=== PATIENT | female | born 1945 | race Caucasian/White ===

== ENCOUNTER → 2018-08-22 13:00 | Outpatient (CLI) | payer MEDICARE, BC, SELFPAY | PROVIDERS: PCP Student in an Organized Health Care Education/Training Program; Visit Provider Student in an Organized Health Care Education/Training Program | DX: M81.0 Age-related osteoporosis without current pathological fracture (principal); Z78.0 Asymptomatic menopausal state; E07.9 Disorder of thyroid, unspecified; Z82.62 Family history of osteoporosis | CPT/HCPCS: 77080 ==

== ENCOUNTER 2018-11-22 14:30 | Outpatient (RCR) | payer MEDICARE, BC, SELFPAY ==
--- NOTE | 2018-09-29 16:00 | PT.OIE ---
Current Diagnoses Other symptoms and signs involving the musculoskeletal system (09/29/18) Dizziness and giddiness (09/29/18) Past Medical History (Last Updated 08/14/18 @ 20:57 by Tawana Blair) Postmenopausal (Chronic) Provider Visit Care Team Role Provider Type Jey Phillip MD Attending Provider Physician Primary Care Provider Specialty: Internal Medicine Address: [address] [place] [address], [id number] Email: Physical Therapy Initial Evaluation PT-OP-A Visit Information Start: 09/29/18 12:54 Freq: Status: Active Protocol: Document 09/29/18 13:45 BS (Rec: 09/29/18 12:59 BS [id number]) Out-Patient Physical Therapy Visit Information Visit Information Visit Type Initial Evaluation Visit Start Time 13:00 Visit Stop Time 13:45 Total Visit Minutes 45 Visit Number 1 Number of FUEL TANK SEALER AND TESTER Visits 0 Evaluation Information Evaluation Date 09/29/18 PT-OP-B Current Condition Start: 09/29/18 12:54 Freq: Status: Active Protocol: Document 09/29/18 13:45 BS (Rec: 09/29/18 13:16 BS [id number]) Current Condition History of Current Condition History of Current Condition Pt complains of unsteadiness on her feet, imbalance, weakness, and back pain. She reports that at times she feels fine, but that at other times her balance just feels off and she feels like she may fall, she describes this as dizziness but denies sensation of spinning or symptoms of vertigo. Pt reports this happens several times a day and that it is often unpredictable with the exception of walking >1 hr. Pt denies a history of falls and states that she is always able to regain a LOB on her own with and without external support. Pt does not use an AD and states that she also has chronic bilateral plantar fasciitis. She was diagnosed with PD last month, but questions diagnosis and not willing to accept that that is whats going on as her only sign is B UE tremors, which have reduced with carbidopa- levodopa medications. Developmental History Developmental History Osteoporosis Parkinson's Disease Thyroid Disorder Prior Functional Status Baseline Function- ADL's Independent Baseline Function- Mobility Independent Baseline Function- Gait Independent without use of AD Baseline Function- Work/School Pt is retired. Baseline Function- Recreation/Hobbies Pt reports being able to walk for >1 hr within the last year without disequillibrium, B LE weakness, back pain. Current Functional Impairments (Reported) Functional Limitations- ADL's Pt reports inability to walk around house when feeling off balance. She is unable cook and has difficulty cleaning, showering, and completing other ADLs that require her to be standing due to disequillibrium and fear of falling. Functional Limitations- Mobility/Gait All gait and functional mobility on feet limited due to decreased balance. Pt reports that she furniture walks when feeling off balance in her home. Functional Limitations- Recreation/ Currently unable to walk for > Hobbies 1 hour due to imbalance. When pt is feeling off-balance she does not walk at all due to fear of falling. Personal Factors Other Personal Factors That May Effect osteoporosis Therapy/Recovery back pain Parkinson's Disease PT-OP-C Subjective Start: 09/29/18 12:54 Freq: Status: Active Protocol: Document 09/29/18 13:45 BS (Rec: 10/01/18 12:50 BS [email or web address]) OP-PT Subjective Patient Comments Patient Comments My balance has gotten worse within the last year and my legs and arms feel weaker. Patient Reported Progress Worse Patient Questionnaires ABC- Activity Specific Balance Confidence Scale ABC Score 40 ABC Functional Impairment 60 to <80% Impaired (Score 21- 40) Dizziness Handicap Inventory DHI Score 36 DHI Functional Impairment 20 to 39% Impaired (Score 20- 39) OP-PT Pain Assessment Pain Assessment Grid Paper Pain Assessment Grid Completed Yes Location Back Pain Location Details Upper and lower back Intensity 2 Scale Used Numeric (1 - 10) Description Chronic Frequency Intermittent Pain Duration intermittent with activity, limits walking Pain Aggravating Factors Activity Exercise Standing Sitting Walking Bending Lifting PT-OP-D Balance Start: 09/29/18 12:54 Freq: Status: Active Protocol: Document 09/29/18 13:45 BS (Rec: 10/01/18 12:50 BS [email or web address]) OP-PT Balance Assessment Sitting Balance Static Sitting Balance Ability Normal Dynamic Sitting Balance Ability Normal Standing Balance Static Standing Balance Ability Normal Dynamic Standing Balance Ability Normal Device Used no AD Balance Tests mCTSIB mCTSIB Position 1 maintained postition 30 seconds without LOB and little sway mCTSIB Position 2 maintained postition 30 seconds without LOB, increased med/lat sway mCTSIB Position 3 maintained position 30 seconds , no LOB, increased ankle strategies mCTSIB Position 4 LOB within 10 seconds, increased med/lat sway Chavez Fall Scale Copyright Permission Scott JM, Scott RM, Linus SJ. Development of a scale to identify the fall- prone patient. Can J Aging 1989;8;366-7. Sharon Chavez (2009). Preventing patient falls. (2nd ed). [place]: [employer]. PT-OP-E Functional Tests Start: 09/29/18 12:54 Freq: Status: Active Protocol: Document 09/29/18 13:45 BS (Rec: 10/01/18 12:50 BS [email or web address]) Functional Tests Dynamic Gait Index (DGI) Score 23 DGI Impairment Rating 1 to <20% Impaired (Score 20- 23) Other 1 Name of Test 30 second sit to stand Score 14 Comment not at increased risk for falls. PT-OP-G Mobility & Gait Start: 09/29/18 12:54 Freq: Status: Active Protocol: Document 09/29/18 13:45 BS (Rec: 10/01/18 12:50 BS [email or web address]) OP Mobility Evaluation Bed Mobility Rolling Independent use of UEs Supine to and from Sit Independent use of UEs Transfers Sit to Stand Independent no use of UEs Car Transfers Pt does not reort difficulty with car transfers and is able to do independently. Floor Transfers Pt reports that she would be able to get up off of the floor without external support in the event of a fall. OP Gait Assessment Gait Gait Assistance Required: Independent Able to Maintain Weight Bearing Status Yes During Gait Assistive Devices Assistive Device None Gait Deviations General Gait Pattern Within Normal Limits Flexed Trunk Comments Gait Comments Pt ambulated in clinic without use of AD and without evidence of imbalance. She does exhibit slighly flexed trunk posture. Pt reports that when she is feeling imbalanced she is unable to walk without grabbing onto nearby furniture or levine. PT-OP-H Neuro Start: 09/29/18 12:54 Freq: Status: Active Protocol: Document 09/29/18 13:45 BS (Rec: 10/01/18 12:50 BS [email or web address]) Coordination Evaluation Upper Extremity Tests Right Finger to Nose Test Normal Performance Left Finger to Nose Test Normal Performance PT-OP-J Posture/Palpation/Skin Start: 09/29/18 12:54 Freq: Status: Active Protocol: Document 09/29/18 13:45 BS (Rec: 10/01/18 12:50 BS [email or web address]) Posture Evaluation Position Standing Evaluation View Anterior Head/C-Spine Posture Forward Head Shoulder Posture (L) Rounded (R) Rounded Comments Posture Comments Pt demo's forward head and rounded shoulders bilaterally, slight increase in trunk flexion. PT-OP-M Strength Start: 09/29/18 12:54 Freq: Status: Active Protocol: Document 09/29/18 13:45 BS (Rec: 10/01/18 12:50 BS [email or web address]) Hip Strength Hip Manual Muscle Testing Right Flexion (L2) 5 Normal Extension (S1) 4 Good Abduction 4 Good External Rotation 4+ Good+ Internal Rotation 4+ Good+ Comments no pain during MMT Left Flexion (L2) 5 Normal Extension (S1) 4 Good Abduction 4 Good External Rotation 4+ Good+ Internal Rotation 4+ Good+ Comments no pain during MMT Knee Strength Knee Manual Muscle Testing Right Flexion (S2) 4 Good Comments no pain during MMT Left Flexion (S2) 4 Good Extension (L3) 4 Good Comments no pain during MMT Ankle/Foot Strength Ankle and Foot Manual Muscle Testing Right Dorsiflexion (L4) 5 Normal Plantarflexion (S1) 5 Normal Comments no pain during MMT Left Dorsiflexion (L4) 5 Normal Plantarflexion (S1) 5 Normal Comments no pain during MMT PT-OP-Q Treatments Start: 10/01/18 12:50 Freq: Status: Active Protocol: Document 09/29/18 13:45 BS (Rec: 10/01/18 12:51 BS [email or web address]) Therapeutic Exercises Standing Exercises 1 Standing Exercise Name Mini Squats Equipment Used at countertop, B UE support Reps/Minutes x10 Comments added to HEP today. PT-OP-T Assessment and Plan Start: 09/29/18 12:54 Freq: Status: Active Protocol: Document 09/29/18 13:45 BS (Rec: 10/01/18 12:50 BS [email or web address]) Physical Therapy Assessment Rehab Potential Rehabilitation Potential Good Evaluation Complexity Number of Personal Factors/Comorbidities 1-2 Number of Body Systems Impaired 1-2 Clinical Presentation at Evaluation Stable Impairments Impairments Activity Tolerance Balance Functional Activities Functional Mobility Gait Pain Strength Other Concerns Age Related Concerns at increased risk for falls when experiencing sensation of disequillibrium Barriers to Rehabilitation Progressive nature of Parkinson's Disease, osteoporosis Goals One Impairment lack of HEP Short Term Goal (STG) Pt will become independent with an initial HEP for bilateral lower extremity strengthening and balance to maximize rehabilitation potentional outside of formal PT sessions. STG Duration 4 weeks Research Lab Assistant Goal (LTG) Pt to demonstrate at least 4+/ 5 strength with bilateral hip extension, abduction, and knee flexion to improve pt ability to complete ADLs without weakness and fatigue. LTG Duration 10 weeks Two Impairment Balance Short Term Goal (STG) Pt will maintain position 4 of modified CTSIB for at least 15 seconds without LOB to promote safety and reduced fall risk in low-lit environments. STG Duration 4 weeks Retirement Goal (LTG) Pt will score at least a 50 on the Activities Specific Balance Confidence Scale, demonstrating subjective improvements in balance confidence with daily and recreational activities. LTG Duration 10 weeks Assessment Summary Assessment Juan is a 73 year old female who presents with complaints of bilateral lower extremity weakness and disequillbrium. She was recently diagnosed with parkinson's disease but is not convinced of this diagnosis. She has osteoporosis, but denies a history of falls. Pt's feeling of imbalance is not constant, but she reports that it occurs daily limiting her ability to perform ADLs and walk for exercise without a LOB and increased fear of falling. Pt benefits from skilled physical therapy intervention for bilateral lower extremity strengthening and dynamic balance challenging activities to promote return to PLOF and to increase safety with mobility. Physical Therapy Plan Frequency and Duration Frequency of Treatment 1-2x/week Duration of Treatment 10 weeks Plan of Care Start Date 09/29/18 Plan of Care End Date 12/08/18 Therapeutic Interventions Therapeutic Interventions Balance Training Coordination Training Home Exercise Program Manual Therapy Neuromuscular Re-education Patient/Caregiver Education Self-Care/Home Management Therapeutic Activities Therapeutic Exercises Vestibular Rehabilitation Modalities Cold Pack/Ice Massage Hot Packs Next Visit Focus/Plan Next Note Type Treatment Note Next Visit Plan Test single limb balance. Begin B LE strengthening and dynamic balance challenging activities. Consider having her walk on treadmill for awhile to asesss impact of fatigue on balance.
--- NOTE | 2018-10-02 15:47 | PT.OTN ---
Current Diagnoses Other symptoms and signs involving the musculoskeletal system (10/02/18) Dizziness and giddiness (10/02/18) Physical Therapy Treatment Note PT-OP-A Visit Information Start: 09/29/18 12:54 Freq: Status: Active Protocol: Document 10/02/18 15:17 BS (Rec: 10/02/18 15:37 BS [email or web address]) Out-Patient Physical Therapy Visit Information Visit Information Visit Type Treatment Note Visit Start Time 14:30 Visit Stop Time 15:17 Total Visit Minutes 47 Visit Number 2 Number of COPPER PLATE LITHOGRAPHER Visits 0 Evaluation Information Evaluation Date 09/29/18 PT-OP-B Current Condition Start: 09/29/18 12:54 Freq: Status: Active Protocol: Document 09/29/18 13:45 BS (Rec: 09/29/18 13:16 BS [id number]) Current Condition History of Current Condition History of Current Condition Pt complains of unsteadiness on her feet, imbalance, weakness, and back pain. She reports that at times she feels fine, but that at other times her balance just feels off and she feels like she may fall, she describes this as dizziness but denies sensation of spinning or symptoms of vertigo. Pt reports this happens several times a day and that it is often unpredictable with the exception of walking >1 hr. Pt denies a history of falls and states that she is always able to regain a LOB on her own with and without external support. Pt does not use an AD and states that she also has chronic bilateral plantar fasciitis. She was diagnosed with PD last month, but questions diagnosis and not willing to accept that that is whats going on as her only sign is B UE tremors, which have reduced with carbidopa- levodopa medications. Developmental History Developmental History Osteoporosis Parkinson's Disease Thyroid Disorder Prior Functional Status Baseline Function- ADL's Independent Baseline Function- Mobility Independent Baseline Function- Gait Independent without use of AD Baseline Function- Work/School Pt is retired. Baseline Function- Recreation/Hobbies Pt reports being able to walk for >1 hr within the last year without disequillibrium, B LE weakness, back pain. Current Functional Impairments (Reported) Functional Limitations- ADL's Pt reports inability to walk around house when feeling off balance. She is unable cook and has difficulty cleaning, showering, and completing other ADLs that require her to be standing due to disequillibrium and fear of falling. Functional Limitations- Mobility/Gait All gait and functional mobility on feet limited due to decreased balance. Pt reports that she furniture walks when feeling off balance in her home. Functional Limitations- Recreation/ Currently unable to walk for > Hobbies 1 hour due to imbalance. When pt is feeling off-balance she does not walk at all due to fear of falling. Personal Factors Other Personal Factors That May Effect osteoporosis Therapy/Recovery back pain Parkinson's Disease PT-OP-C Subjective Start: 09/29/18 12:54 Freq: Status: Active Protocol: Document 10/02/18 15:17 BS (Rec: 10/02/18 15:37 BS [email or web address]) OP-PT Subjective Patient Comments Patient Comments Pt denies any soreness following IE. She continues to report episodic disequillbrium that is worse when she is fatigued. PT-OP-D Balance Start: 09/29/18 12:54 Freq: Status: Active Protocol: Document 10/02/18 15:17 BS (Rec: 10/02/18 15:37 BS [email or web address]) Balance Tests Single Limb Standing Single Limb- Right 20 sec, 27 sec, 25 sec Single Limb- Left 6 sec, 5 sec, 15 sec PT-OP-E Functional Tests Start: 09/29/18 12:54 Freq: Status: Active Protocol: Document 09/29/18 13:45 BS (Rec: 10/01/18 12:50 BS [email or web address]) Functional Tests Dynamic Gait Index (DGI) Score 23 DGI Impairment Rating 1 to <20% Impaired (Score 20- 23) Other 1 Name of Test 30 second sit to stand Score 14 Comment not at increased risk for falls. PT-OP-G Mobility & Gait Start: 09/29/18 12:54 Freq: Status: Active Protocol: Document 09/29/18 13:45 BS (Rec: 10/01/18 12:50 BS [email or web address]) OP Mobility Evaluation Bed Mobility Rolling Independent use of UEs Supine to and from Sit Independent use of UEs Transfers Sit to Stand Independent no use of UEs Car Transfers Pt does not reort difficulty with car transfers and is able to do independently. Floor Transfers Pt reports that she would be able to get up off of the floor without external support in the event of a fall. OP Gait Assessment Gait Gait Assistance Required: Independent Able to Maintain Weight Bearing Status Yes During Gait Assistive Devices Assistive Device None Gait Deviations General Gait Pattern Within Normal Limits Flexed Trunk Comments Gait Comments Pt ambulated in clinic without use of AD and without evidence of imbalance. She does exhibit slighly flexed trunk posture. Pt reports that when she is feeling imbalanced she is unable to walk without grabbing onto nearby furniture or levine. PT-OP-H Neuro Start: 09/29/18 12:54 Freq: Status: Active Protocol: Document 09/29/18 13:45 BS (Rec: 10/01/18 12:50 BS [email or web address]) Coordination Evaluation Upper Extremity Tests Right Finger to Nose Test Normal Performance Left Finger to Nose Test Normal Performance PT-OP-J Posture/Palpation/Skin Start: 09/29/18 12:54 Freq: Status: Active Protocol: Document 09/29/18 13:45 BS (Rec: 10/01/18 12:50 BS [email or web address]) Posture Evaluation Position Standing Evaluation View Anterior Head/C-Spine Posture Forward Head Shoulder Posture (L) Rounded (R) Rounded Comments Posture Comments Pt demo's forward head and rounded shoulders bilaterally, slight increase in trunk flexion. PT-OP-M Strength Start: 09/29/18 12:54 Freq: Status: Active Protocol: Document 09/29/18 13:45 BS (Rec: 10/01/18 12:50 BS [email or web address]) Hip Strength Hip Manual Muscle Testing Right Flexion (L2) 5 Normal Extension (S1) 4 Good Abduction 4 Good External Rotation 4+ Good+ Internal Rotation 4+ Good+ Comments no pain during MMT Left Flexion (L2) 5 Normal Extension (S1) 4 Good Abduction 4 Good External Rotation 4+ Good+ Internal Rotation 4+ Good+ Comments no pain during MMT Knee Strength Knee Manual Muscle Testing Right Flexion (S2) 4 Good Comments no pain during MMT Left Flexion (S2) 4 Good Extension (L3) 4 Good Comments no pain during MMT Ankle/Foot Strength Ankle and Foot Manual Muscle Testing Right Dorsiflexion (L4) 5 Normal Plantarflexion (S1) 5 Normal Comments no pain during MMT Left Dorsiflexion (L4) 5 Normal Plantarflexion (S1) 5 Normal Comments no pain during MMT PT-OP-Q Treatments Start: 10/01/18 12:50 Freq: Status: Active Protocol: Document 10/02/18 15:17 BS (Rec: 10/02/18 15:37 BS [email or web address]) Cardio Equipment Treadmill Duration (Minutes) 8 Speed 3.0 Incline 0 Other .40 miles Gym Equipment Shuttle Balance 1 Details Ant/Post and Lateral Comments Level: Red. WBOS and NBOS with ant/post, occasional use of B UEs on bars to steady. Lateral more challenging with UE steadying on bars ~5-10 seconds. Therapeutic Exercises Standing Exercises 2 Standing Exercise Name Hip abduction Side bilateral Resistance 4# ankle weights Reps/Minutes x15 each Comments VCs to avoid hip ER 1 Standing Exercise Name Mini Squats Equipment Used // bars B UE support Reps/Minutes x15 Comments able to avoid knees over toes without VCs Neuro Re-Education Treatment Balance Activities 4 Details Single Limb Balance Equipment // bars no UE support Reps/Duration 3x to failure each leg Comments RLE balance<LLE 3 Details Tilt Board ant/post/lateral Equipment // bars, no UE supoprt Reps/Duration x1' each Comments trial today. Pt progressed to shuttle balance. 2 Details WBOS, NBOS Surface bosu balance discs Reps/Duration //bars no UE support Comments Arms across chest. EO and EC with WBOS and NBOS. Increased sway with EC, but able to maintain balance for at least 30 seconds without LOB. 1 Details [place] Walking and Sidestepping Surface firm and with foam balance discs Equipment // bars, no UE support Comments reciprocal stepping, 1 foot each space with forward walking hurdles. PT-OP-T Assessment and Plan Start: 09/29/18 12:54 Freq: Status: Active Protocol: Document 10/02/18 15:17 BS (Rec: 10/02/18 15:37 BS [email or web address]) Physical Therapy Assessment Assessment Summary Assessment Pt tolerated session well without a LOB during dynamic balance challenging activities following treadmill. Assessed single limb balance with RLE greater than LLE. She continues to report episodes of disequillibrium that increase when she is fatigued. Will continue to work on balance and B LE strengthening . Physical Therapy Plan Next Visit Focus/Plan Next Note Type Treatment Note Next Visit Plan Progress B LE strengthening with theraband and add to HEP. Dynamic balance challenging activities following strengthening exercises in order to challenge balance with fatigue.
--- NOTE | 2018-10-04 15:50 | PT.OTN ---
Current Diagnoses Other symptoms and signs involving the musculoskeletal system (10/04/18) Dizziness and giddiness (10/04/18) Physical Therapy Treatment Note PT-OP-A Visit Information Start: 09/29/18 12:54 Freq: Status: Active Protocol: Document 10/04/18 15:21 BS (Rec: 10/04/18 15:30 BS [email or web address]) Out-Patient Physical Therapy Visit Information Visit Information Visit Type Treatment Note Visit Start Time 14:35 Visit Stop Time 15:16 Total Visit Minutes 41 Visit Number 3 Number of FASHION DIRECTOR Visits 0 Evaluation Information Evaluation Date 09/29/18 PT-OP-B Current Condition Start: 09/29/18 12:54 Freq: Status: Active Protocol: Document 09/29/18 13:45 BS (Rec: 09/29/18 13:16 BS [id number]) Current Condition History of Current Condition History of Current Condition Pt complains of unsteadiness on her feet, imbalance, weakness, and back pain. She reports that at times she feels fine, but that at other times her balance just feels off and she feels like she may fall, she describes this as dizziness but denies sensation of spinning or symptoms of vertigo. Pt reports this happens several times a day and that it is often unpredictable with the exception of walking >1 hr. Pt denies a history of falls and states that she is always able to regain a LOB on her own with and without external support. Pt does not use an AD and states that she also has chronic bilateral plantar fasciitis. She was diagnosed with PD last month, but questions diagnosis and not willing to accept that that is whats going on as her only sign is B UE tremors, which have reduced with carbidopa- levodopa medications. Developmental History Developmental History Osteoporosis Parkinson's Disease Thyroid Disorder Prior Functional Status Baseline Function- ADL's Independent Baseline Function- Mobility Independent Baseline Function- Gait Independent without use of AD Baseline Function- Work/School Pt is retired. Baseline Function- Recreation/Hobbies Pt reports being able to walk for >1 hr within the last year without disequillibrium, B LE weakness, back pain. Current Functional Impairments (Reported) Functional Limitations- ADL's Pt reports inability to walk around house when feeling off balance. She is unable cook and has difficulty cleaning, showering, and completing other ADLs that require her to be standing due to disequillibrium and fear of falling. Functional Limitations- Mobility/Gait All gait and functional mobility on feet limited due to decreased balance. Pt reports that she furniture walks when feeling off balance in her home. Functional Limitations- Recreation/ Currently unable to walk for > Hobbies 1 hour due to imbalance. When pt is feeling off-balance she does not walk at all due to fear of falling. Personal Factors Other Personal Factors That May Effect osteoporosis Therapy/Recovery back pain Parkinson's Disease PT-OP-C Subjective Start: 09/29/18 12:54 Freq: Status: Active Protocol: Document 10/04/18 15:21 BS (Rec: 10/04/18 15:30 BS [email or web address]) OP-PT Subjective Patient Comments Patient Comments Pt continues to report that her dizziness/disequillbrium is epsidodic and worse with fatigue. She denies cardiac history. PT-OP-D Balance Start: 09/29/18 12:54 Freq: Status: Active Protocol: Document 10/02/18 15:17 BS (Rec: 10/02/18 15:37 BS [email or web address]) Balance Tests Single Limb Standing Single Limb- Right 20 sec, 27 sec, 25 sec Single Limb- Left 6 sec, 5 sec, 15 sec PT-OP-E Functional Tests Start: 09/29/18 12:54 Freq: Status: Active Protocol: Document 09/29/18 13:45 BS (Rec: 10/01/18 12:50 BS [email or web address]) Functional Tests Dynamic Gait Index (DGI) Score 23 DGI Impairment Rating 1 to <20% Impaired (Score 20- 23) Other 1 Name of Test 30 second sit to stand Score 14 Comment not at increased risk for falls. PT-OP-G Mobility & Gait Start: 09/29/18 12:54 Freq: Status: Active Protocol: Document 09/29/18 13:45 BS (Rec: 10/01/18 12:50 BS [email or web address]) OP Mobility Evaluation Bed Mobility Rolling Independent use of UEs Supine to and from Sit Independent use of UEs Transfers Sit to Stand Independent no use of UEs Car Transfers Pt does not reort difficulty with car transfers and is able to do independently. Floor Transfers Pt reports that she would be able to get up off of the floor without external support in the event of a fall. OP Gait Assessment Gait Gait Assistance Required: Independent Able to Maintain Weight Bearing Status Yes During Gait Assistive Devices Assistive Device None Gait Deviations General Gait Pattern Within Normal Limits Flexed Trunk Comments Gait Comments Pt ambulated in clinic without use of AD and without evidence of imbalance. She does exhibit slighly flexed trunk posture. Pt reports that when she is feeling imbalanced she is unable to walk without grabbing onto nearby furniture or levine. PT-OP-H Neuro Start: 09/29/18 12:54 Freq: Status: Active Protocol: Document 09/29/18 13:45 BS (Rec: 10/01/18 12:50 BS [email or web address]) Coordination Evaluation Upper Extremity Tests Right Finger to Nose Test Normal Performance Left Finger to Nose Test Normal Performance PT-OP-J Posture/Palpation/Skin Start: 09/29/18 12:54 Freq: Status: Active Protocol: Document 09/29/18 13:45 BS (Rec: 10/01/18 12:50 BS [email or web address]) Posture Evaluation Position Standing Evaluation View Anterior Head/C-Spine Posture Forward Head Shoulder Posture (L) Rounded (R) Rounded Comments Posture Comments Pt demo's forward head and rounded shoulders bilaterally, slight increase in trunk flexion. PT-OP-M Strength Start: 09/29/18 12:54 Freq: Status: Active Protocol: Document 09/29/18 13:45 BS (Rec: 10/01/18 12:50 BS [email or web address]) Hip Strength Hip Manual Muscle Testing Right Flexion (L2) 5 Normal Extension (S1) 4 Good Abduction 4 Good External Rotation 4+ Good+ Internal Rotation 4+ Good+ Comments no pain during MMT Left Flexion (L2) 5 Normal Extension (S1) 4 Good Abduction 4 Good External Rotation 4+ Good+ Internal Rotation 4+ Good+ Comments no pain during MMT Knee Strength Knee Manual Muscle Testing Right Flexion (S2) 4 Good Comments no pain during MMT Left Flexion (S2) 4 Good Extension (L3) 4 Good Comments no pain during MMT Ankle/Foot Strength Ankle and Foot Manual Muscle Testing Right Dorsiflexion (L4) 5 Normal Plantarflexion (S1) 5 Normal Comments no pain during MMT Left Dorsiflexion (L4) 5 Normal Plantarflexion (S1) 5 Normal Comments no pain during MMT PT-OP-Q Treatments Start: 10/01/18 12:50 Freq: Status: Active Protocol: Document 10/04/18 15:21 BS (Rec: 10/04/18 15:30 BS [email or web address]) Cardio Equipment Treadmill Duration (Minutes) 10 Speed 3.0 Incline 0 Other .50 miles Therapeutic Exercises Supine Exercises 3 Supine Exercise Name Ankle DF Equipment Used #2 band Reps/Minutes x20 2 Supine Exercise Name BKFO Side bilateral Reps/Minutes x10 each 1 Supine Exercise Name Supine Clamshells Side bilateral Equipment Used #2 band Comments 2x10 Standing Exercises 4 Standing Exercise Name Calf Raises Resistance // bars, B UE support Reps/Minutes 2x10 3 Standing Exercise Name Hip extension Side bilateral Equipment Used // bars, B UE support Reps/Minutes 2x10 each Comments VCs to avoid lordosis 2 Standing Exercise Name Hip abduction Side bilateral Resistance 4# ankle weights Reps/Minutes 2x10 Comments VCs to avoid hip ER 1 Standing Exercise Name Mini Squats Equipment Used // bars B UE support Reps/Minutes 2x12 Comments good technique PT-OP-T Assessment and Plan Start: 09/29/18 12:54 Freq: Status: Active Protocol: Document 10/04/18 15:21 BS (Rec: 10/04/18 15:30 BS [email or web address]) Physical Therapy Assessment Assessment Summary Assessment Pt did well with B LE strengthening, focusing on endurance with sets and reps as pt notices more disequillbrium with fatigue. Her R foot tends to drag a bit after 5' of treadmill walking . Added hip abd, ext, clams, and calf raises to HEP today. Physical Therapy Plan Next Visit Focus/Plan Next Note Type Treatment Note Next Visit Plan Progress B LE strengthening with focus on endurance, decrease B UE support as able for balance challenege.
--- NOTE | 2018-10-09 15:46 | PT.OTN ---
Current Diagnoses Other symptoms and signs involving the musculoskeletal system (10/09/18) Dizziness and giddiness (10/09/18) Physical Therapy Treatment Note PT-OP-A Visit Information Start: 09/29/18 12:54 Freq: Status: Active Protocol: Document 10/09/18 14:45 BS (Rec: 10/09/18 14:47 BS [email or web address]) Out-Patient Physical Therapy Visit Information Visit Information Visit Type Treatment Note Visit Start Time 14:35 Visit Stop Time 15:20 Total Visit Minutes 45 Visit Number 4 Number of INTERNET ASSESSOR Visits 0 Evaluation Information Evaluation Date 09/29/18 PT-OP-B Current Condition Start: 09/29/18 12:54 Freq: Status: Active Protocol: Document 09/29/18 13:45 BS (Rec: 09/29/18 13:16 BS [id number]) Current Condition History of Current Condition History of Current Condition Pt complains of unsteadiness on her feet, imbalance, weakness, and back pain. She reports that at times she feels fine, but that at other times her balance just feels off and she feels like she may fall, she describes this as dizziness but denies sensation of spinning or symptoms of vertigo. Pt reports this happens several times a day and that it is often unpredictable with the exception of walking >1 hr. Pt denies a history of falls and states that she is always able to regain a LOB on her own with and without external support. Pt does not use an AD and states that she also has chronic bilateral plantar fasciitis. She was diagnosed with PD last month, but questions diagnosis and not willing to accept that that is whats going on as her only sign is B UE tremors, which have reduced with carbidopa- levodopa medications. Developmental History Developmental History Osteoporosis Parkinson's Disease Thyroid Disorder Prior Functional Status Baseline Function- ADL's Independent Baseline Function- Mobility Independent Baseline Function- Gait Independent without use of AD Baseline Function- Work/School Pt is retired. Baseline Function- Recreation/Hobbies Pt reports being able to walk for >1 hr within the last year without disequillibrium, B LE weakness, back pain. Current Functional Impairments (Reported) Functional Limitations- ADL's Pt reports inability to walk around house when feeling off balance. She is unable cook and has difficulty cleaning, showering, and completing other ADLs that require her to be standing due to disequillibrium and fear of falling. Functional Limitations- Mobility/Gait All gait and functional mobility on feet limited due to decreased balance. Pt reports that she furniture walks when feeling off balance in her home. Functional Limitations- Recreation/ Currently unable to walk for > Hobbies 1 hour due to imbalance. When pt is feeling off-balance she does not walk at all due to fear of falling. Personal Factors Other Personal Factors That May Effect osteoporosis Therapy/Recovery back pain Parkinson's Disease PT-OP-C Subjective Start: 09/29/18 12:54 Freq: Status: Active Protocol: Document 10/09/18 14:45 BS (Rec: 10/09/18 14:47 BS [id number]) OP-PT Subjective Patient Comments Patient Comments Pt states she has noticed slight improvements in frequency of disequillbrium, continues experience it most when fatigued. Had B12 injection this morning and tends to feel better a few days following. PT-OP-D Balance Start: 09/29/18 12:54 Freq: Status: Active Protocol: Document 10/02/18 15:17 BS (Rec: 10/02/18 15:37 BS [email or web address]) Balance Tests Single Limb Standing Single Limb- Right 20 sec, 27 sec, 25 sec Single Limb- Left 6 sec, 5 sec, 15 sec PT-OP-E Functional Tests Start: 09/29/18 12:54 Freq: Status: Active Protocol: Document 09/29/18 13:45 BS (Rec: 10/01/18 12:50 BS [email or web address]) Functional Tests Dynamic Gait Index (DGI) Score 23 DGI Impairment Rating 1 to <20% Impaired (Score 20- 23) Other 1 Name of Test 30 second sit to stand Score 14 Comment not at increased risk for falls. PT-OP-G Mobility & Gait Start: 09/29/18 12:54 Freq: Status: Active Protocol: Document 09/29/18 13:45 BS (Rec: 10/01/18 12:50 BS [email or web address]) OP Mobility Evaluation Bed Mobility Rolling Independent use of UEs Supine to and from Sit Independent use of UEs Transfers Sit to Stand Independent no use of UEs Car Transfers Pt does not reort difficulty with car transfers and is able to do independently. Floor Transfers Pt reports that she would be able to get up off of the floor without external support in the event of a fall. OP Gait Assessment Gait Gait Assistance Required: Independent Able to Maintain Weight Bearing Status Yes During Gait Assistive Devices Assistive Device None Gait Deviations General Gait Pattern Within Normal Limits Flexed Trunk Comments Gait Comments Pt ambulated in clinic without use of AD and without evidence of imbalance. She does exhibit slighly flexed trunk posture. Pt reports that when she is feeling imbalanced she is unable to walk without grabbing onto nearby furniture or levine. PT-OP-H Neuro Start: 09/29/18 12:54 Freq: Status: Active Protocol: Document 09/29/18 13:45 BS (Rec: 10/01/18 12:50 BS [email or web address]) Coordination Evaluation Upper Extremity Tests Right Finger to Nose Test Normal Performance Left Finger to Nose Test Normal Performance PT-OP-J Posture/Palpation/Skin Start: 09/29/18 12:54 Freq: Status: Active Protocol: Document 09/29/18 13:45 BS (Rec: 10/01/18 12:50 BS [email or web address]) Posture Evaluation Position Standing Evaluation View Anterior Head/C-Spine Posture Forward Head Shoulder Posture (L) Rounded (R) Rounded Comments Posture Comments Pt demo's forward head and rounded shoulders bilaterally, slight increase in trunk flexion. PT-OP-M Strength Start: 09/29/18 12:54 Freq: Status: Active Protocol: Document 09/29/18 13:45 BS (Rec: 10/01/18 12:50 BS [email or web address]) Hip Strength Hip Manual Muscle Testing Right Flexion (L2) 5 Normal Extension (S1) 4 Good Abduction 4 Good External Rotation 4+ Good+ Internal Rotation 4+ Good+ Comments no pain during MMT Left Flexion (L2) 5 Normal Extension (S1) 4 Good Abduction 4 Good External Rotation 4+ Good+ Internal Rotation 4+ Good+ Comments no pain during MMT Knee Strength Knee Manual Muscle Testing Right Flexion (S2) 4 Good Comments no pain during MMT Left Flexion (S2) 4 Good Extension (L3) 4 Good Comments no pain during MMT Ankle/Foot Strength Ankle and Foot Manual Muscle Testing Right Dorsiflexion (L4) 5 Normal Plantarflexion (S1) 5 Normal Comments no pain during MMT Left Dorsiflexion (L4) 5 Normal Plantarflexion (S1) 5 Normal Comments no pain during MMT PT-OP-Q Treatments Start: 10/01/18 12:50 Freq: Status: Active Protocol: Document 10/09/18 15:23 BS (Rec: 10/09/18 15:38 BS [email or web address]) Cardio Equipment Treadmill Duration (Minutes) 10 Speed 3.0 Incline 0 Other .50 miles Therapeutic Exercises Supine Exercises 4 Supine Exercise Name Bridges Reps/Minutes x15 each Comments bilateral and unilateral 3 Supine Exercise Name Ankle DF Side bilateral Equipment Used #3 band Reps/Minutes x20 2 Supine Exercise Name BKFO Side bilateral Reps/Minutes x10 each 1 Supine Exercise Name Supine Clamshells Side bilateral Equipment Used #2 band Comments 2x10 Standing Exercises 6 Standing Exercise Name Sidestepping Resistance yellow loop band Equipment Used B UE support // bars Comments 1 lap in bars 4 Standing Exercise Name Calf Raises Resistance // bars, B UE support Equipment Used 4# ankle wt Reps/Minutes 2x10 3 Standing Exercise Name Hip extension Side bilateral Equipment Used // bars, B UE support,4# wts Reps/Minutes 2x10 each, Comments VCs to avoid lordosis 2 Standing Exercise Name Hip abduction Side bilateral Resistance 4# ankle weights Reps/Minutes 2x15 Comments VCs to avoid hip ER 1 Standing Exercise Name Mini Squats Equipment Used // bars B UE support Reps/Minutes 2x15 Comments good technique PT-OP-T Assessment and Plan Start: 09/29/18 12:54 Freq: Status: Active Protocol: Document 10/09/18 15:23 BS (Rec: 10/09/18 15:38 BS [email or web address]) Physical Therapy Assessment Assessment Summary Assessment BP taken prior to warmup on treadmill, standing RUE: 100/ 60 and post .5mile treadmill: 120/60. Pt has noticed a reduction in frequency of disequillbrium and she had B12 injection this morning. Will continue to monitor symptoms and further evaluate. Physical Therapy Plan Next Visit Focus/Plan Next Note Type Treatment Note Next Visit Plan Progression of B Le strengthening with reduction in UE support for balance challenge. Assess tone and rigidity next session.
--- NOTE | 2018-10-16 15:35 | PT.OTN ---
Current Diagnoses Other symptoms and signs involving the musculoskeletal system (10/16/18) Dizziness and giddiness (10/16/18) Physical Therapy Treatment Note PT-OP-A Visit Information Start: 09/29/18 12:54 Freq: Status: Active Protocol: Document 10/16/18 14:30 AMB (Rec: 10/16/18 15:35 AMB [email or web address]) Out-Patient Physical Therapy Visit Information Visit Information Visit Type Treatment Note Visit Start Time 14:35 Visit Stop Time 15:20 Total Visit Minutes 45 Visit Number 5 Number of CHASER HELPER Visits 0 PT-OP-B Current Condition Start: 09/29/18 12:54 Freq: Status: Active Protocol: Document 09/29/18 13:45 BS (Rec: 09/29/18 13:16 BS [id number]) Current Condition History of Current Condition History of Current Condition Pt complains of unsteadiness on her feet, imbalance, weakness, and back pain. She reports that at times she feels fine, but that at other times her balance just feels off and she feels like she may fall, she describes this as dizziness but denies sensation of spinning or symptoms of vertigo. Pt reports this happens several times a day and that it is often unpredictable with the exception of walking >1 hr. Pt denies a history of falls and states that she is always able to regain a LOB on her own with and without external support. Pt does not use an AD and states that she also has chronic bilateral plantar fasciitis. She was diagnosed with PD last month, but questions diagnosis and not willing to accept that that is whats going on as her only sign is B UE tremors, which have reduced with carbidopa- levodopa medications. Developmental History Developmental History Osteoporosis Parkinson's Disease Thyroid Disorder Prior Functional Status Baseline Function- ADL's Independent Baseline Function- Mobility Independent Baseline Function- Gait Independent without use of AD Baseline Function- Work/School Pt is retired. Baseline Function- Recreation/Hobbies Pt reports being able to walk for >1 hr within the last year without disequillibrium, B LE weakness, back pain. Current Functional Impairments (Reported) Functional Limitations- ADL's Pt reports inability to walk around house when feeling off balance. She is unable cook and has difficulty cleaning, showering, and completing other ADLs that require her to be standing due to disequillibrium and fear of falling. Functional Limitations- Mobility/Gait All gait and functional mobility on feet limited due to decreased balance. Pt reports that she furniture walks when feeling off balance in her home. Functional Limitations- Recreation/ Currently unable to walk for > Hobbies 1 hour due to imbalance. When pt is feeling off-balance she does not walk at all due to fear of falling. Personal Factors Other Personal Factors That May Effect osteoporosis Therapy/Recovery back pain Parkinson's Disease PT-OP-C Subjective Start: 09/29/18 12:54 Freq: Status: Active Protocol: Document 10/16/18 14:30 AMB (Rec: 10/16/18 15:35 AMB [email or web address]) OP-PT Subjective Patient Comments Patient Comments The patient states that she had 3 days in a row of very low energy where she felt a lot more disequilibrium. PT-OP-D Balance Start: 09/29/18 12:54 Freq: Status: Active Protocol: Document 10/02/18 15:17 BS (Rec: 10/02/18 15:37 BS [email or web address]) Balance Tests Single Limb Standing Single Limb- Right 20 sec, 27 sec, 25 sec Single Limb- Left 6 sec, 5 sec, 15 sec PT-OP-E Functional Tests Start: 09/29/18 12:54 Freq: Status: Active Protocol: Document 09/29/18 13:45 BS (Rec: 10/01/18 12:50 BS [email or web address]) Functional Tests Dynamic Gait Index (DGI) Score 23 DGI Impairment Rating 1 to <20% Impaired (Score 20- 23) Other 1 Name of Test 30 second sit to stand Score 14 Comment not at increased risk for falls. PT-OP-G Mobility & Gait Start: 09/29/18 12:54 Freq: Status: Active Protocol: Document 09/29/18 13:45 BS (Rec: 10/01/18 12:50 BS [email or web address]) OP Mobility Evaluation Bed Mobility Rolling Independent use of UEs Supine to and from Sit Independent use of UEs Transfers Sit to Stand Independent no use of UEs Car Transfers Pt does not reort difficulty with car transfers and is able to do independently. Floor Transfers Pt reports that she would be able to get up off of the floor without external support in the event of a fall. OP Gait Assessment Gait Gait Assistance Required: Independent Able to Maintain Weight Bearing Status Yes During Gait Assistive Devices Assistive Device None Gait Deviations General Gait Pattern Within Normal Limits Flexed Trunk Comments Gait Comments Pt ambulated in clinic without use of AD and without evidence of imbalance. She does exhibit slighly flexed trunk posture. Pt reports that when she is feeling imbalanced she is unable to walk without grabbing onto nearby furniture or levine. PT-OP-H Neuro Start: 09/29/18 12:54 Freq: Status: Active Protocol: Document 09/29/18 13:45 BS (Rec: 10/01/18 12:50 BS [email or web address]) Coordination Evaluation Upper Extremity Tests Right Finger to Nose Test Normal Performance Left Finger to Nose Test Normal Performance PT-OP-J Posture/Palpation/Skin Start: 09/29/18 12:54 Freq: Status: Active Protocol: Document 09/29/18 13:45 BS (Rec: 10/01/18 12:50 BS [email or web address]) Posture Evaluation Position Standing Evaluation View Anterior Head/C-Spine Posture Forward Head Shoulder Posture (L) Rounded (R) Rounded Comments Posture Comments Pt demo's forward head and rounded shoulders bilaterally, slight increase in trunk flexion. PT-OP-M Strength Start: 09/29/18 12:54 Freq: Status: Active Protocol: Document 09/29/18 13:45 BS (Rec: 10/01/18 12:50 BS [email or web address]) Hip Strength Hip Manual Muscle Testing Right Flexion (L2) 5 Normal Extension (S1) 4 Good Abduction 4 Good External Rotation 4+ Good+ Internal Rotation 4+ Good+ Comments no pain during MMT Left Flexion (L2) 5 Normal Extension (S1) 4 Good Abduction 4 Good External Rotation 4+ Good+ Internal Rotation 4+ Good+ Comments no pain during MMT Knee Strength Knee Manual Muscle Testing Right Flexion (S2) 4 Good Comments no pain during MMT Left Flexion (S2) 4 Good Extension (L3) 4 Good Comments no pain during MMT Ankle/Foot Strength Ankle and Foot Manual Muscle Testing Right Dorsiflexion (L4) 5 Normal Plantarflexion (S1) 5 Normal Comments no pain during MMT Left Dorsiflexion (L4) 5 Normal Plantarflexion (S1) 5 Normal Comments no pain during MMT PT-OP-Q Treatments Start: 10/01/18 12:50 Freq: Status: Active Protocol: Document 10/16/18 14:30 AMB (Rec: 10/16/18 15:35 AMB [email or web address]) Cardio Equipment Treadmill Duration (Minutes) 10 Speed 3.0 Incline 0 Other .50 miles Therapeutic Exercises Supine Exercises 4 Supine Exercise Name Bridges Reps/Minutes x15 each Comments bilateral and unilateral 1 Supine Exercise Name Supine Clamshells Side bilateral Equipment Used #2 band Comments 2x10 Sidelying Exercises 1 Sidelying Exercise Name hip abduction Reps/Minutes 2x10 Neuro Re-Education Treatment Balance Activities 7 Details HT on foam Comments EO 6 Details walking with HT Comments 2 min- horizontal only 5 Details foam balance Comments harrison EO/ EC Vestibular Rehabilitation X1 Viewing Comments on harrison foam PT-OP-T Assessment and Plan Start: 09/29/18 12:54 Freq: Status: Active Protocol: Document 10/16/18 14:30 AMB (Rec: 10/16/18 15:35 AMB [email or web address]) Physical Therapy Assessment Assessment Summary Assessment Pt with slight dizziness with head turns, otherwise no reproduction of disequilibrium with exercise. Physical Therapy Plan Next Visit Focus/Plan Next Note Type Treatment Note Next Visit Plan Reassess role of head turns in dizziness.
--- NOTE | 2018-11-22 15:13 | PT.OTN ---
Current Diagnoses Other symptoms and signs involving the musculoskeletal system (11/22/18) Dizziness and giddiness (11/22/18) Physical Therapy Treatment Note PT-OP-A Visit Information Start: 09/29/18 12:54 Freq: Status: Active Protocol: Document 11/22/18 14:30 DCW (Rec: 11/22/18 15:13 DCW [id number]) Out-Patient Physical Therapy Visit Information Visit Information Visit Type Treatment Note Visit Start Time 14:30 Visit Stop Time 15:15 Total Visit Minutes 45 Visit Number 6 Number of SPEECH ASSISTANT Visits 0 Evaluation Information Evaluation Date 09/29/18 PT-OP-B Current Condition Start: 09/29/18 12:54 Freq: Status: Active Protocol: Document 09/29/18 13:45 BS (Rec: 09/29/18 13:16 BS [id number]) Current Condition History of Current Condition History of Current Condition Pt complains of unsteadiness on her feet, imbalance, weakness, and back pain. She reports that at times she feels fine, but that at other times her balance just feels off and she feels like she may fall, she describes this as dizziness but denies sensation of spinning or symptoms of vertigo. Pt reports this happens several times a day and that it is often unpredictable with the exception of walking >1 hr. Pt denies a history of falls and states that she is always able to regain a LOB on her own with and without external support. Pt does not use an AD and states that she also has chronic bilateral plantar fasciitis. She was diagnosed with PD last month, but questions diagnosis and not willing to accept that that is whats going on as her only sign is B UE tremors, which have reduced with carbidopa- levodopa medications. Developmental History Developmental History Osteoporosis Parkinson's Disease Thyroid Disorder Prior Functional Status Baseline Function- ADL's Independent Baseline Function- Mobility Independent Baseline Function- Gait Independent without use of AD Baseline Function- Work/School Pt is retired. Baseline Function- Recreation/Hobbies Pt reports being able to walk for >1 hr within the last year without disequillibrium, B LE weakness, back pain. Current Functional Impairments (Reported) Functional Limitations- ADL's Pt reports inability to walk around house when feeling off balance. She is unable cook and has difficulty cleaning, showering, and completing other ADLs that require her to be standing due to disequillibrium and fear of falling. Functional Limitations- Mobility/Gait All gait and functional mobility on feet limited due to decreased balance. Pt reports that she furniture walks when feeling off balance in her home. Functional Limitations- Recreation/ Currently unable to walk for > Hobbies 1 hour due to imbalance. When pt is feeling off-balance she does not walk at all due to fear of falling. Personal Factors Other Personal Factors That May Effect osteoporosis Therapy/Recovery back pain Parkinson's Disease PT-OP-C Subjective Start: 09/29/18 12:54 Freq: Status: Active Protocol: Document 11/22/18 14:30 DCW (Rec: 11/22/18 15:13 DCW [id number]) OP-PT Subjective Patient Comments Patient Comments I've been away for a month, so I kind of feel like I'm starting over. Pt does note that her disequillibrium has been better recently. PT-OP-D Balance Start: 09/29/18 12:54 Freq: Status: Active Protocol: Document 10/02/18 15:17 BS (Rec: 10/02/18 15:37 BS [email or web address]) Balance Tests Single Limb Standing Single Limb- Right 20 sec, 27 sec, 25 sec Single Limb- Left 6 sec, 5 sec, 15 sec PT-OP-E Functional Tests Start: 09/29/18 12:54 Freq: Status: Active Protocol: Document 09/29/18 13:45 BS (Rec: 10/01/18 12:50 BS [email or web address]) Functional Tests Dynamic Gait Index (DGI) Score 23 DGI Impairment Rating 1 to <20% Impaired (Score 20- 23) Other 1 Name of Test 30 second sit to stand Score 14 Comment not at increased risk for falls. PT-OP-G Mobility & Gait Start: 09/29/18 12:54 Freq: Status: Active Protocol: Document 09/29/18 13:45 BS (Rec: 10/01/18 12:50 BS [email or web address]) OP Mobility Evaluation Bed Mobility Rolling Independent use of UEs Supine to and from Sit Independent use of UEs Transfers Sit to Stand Independent no use of UEs Car Transfers Pt does not reort difficulty with car transfers and is able to do independently. Floor Transfers Pt reports that she would be able to get up off of the floor without external support in the event of a fall. OP Gait Assessment Gait Gait Assistance Required: Independent Able to Maintain Weight Bearing Status Yes During Gait Assistive Devices Assistive Device None Gait Deviations General Gait Pattern Within Normal Limits Flexed Trunk Comments Gait Comments Pt ambulated in clinic without use of AD and without evidence of imbalance. She does exhibit slighly flexed trunk posture. Pt reports that when she is feeling imbalanced she is unable to walk without grabbing onto nearby furniture or levine. PT-OP-H Neuro Start: 09/29/18 12:54 Freq: Status: Active Protocol: Document 09/29/18 13:45 BS (Rec: 10/01/18 12:50 BS [email or web address]) Coordination Evaluation Upper Extremity Tests Right Finger to Nose Test Normal Performance Left Finger to Nose Test Normal Performance PT-OP-J Posture/Palpation/Skin Start: 09/29/18 12:54 Freq: Status: Active Protocol: Document 09/29/18 13:45 BS (Rec: 10/01/18 12:50 BS [email or web address]) Posture Evaluation Position Standing Evaluation View Anterior Head/C-Spine Posture Forward Head Shoulder Posture (L) Rounded (R) Rounded Comments Posture Comments Pt demo's forward head and rounded shoulders bilaterally, slight increase in trunk flexion. PT-OP-M Strength Start: 09/29/18 12:54 Freq: Status: Active Protocol: Document 09/29/18 13:45 BS (Rec: 10/01/18 12:50 BS [email or web address]) Hip Strength Hip Manual Muscle Testing Right Flexion (L2) 5 Normal Extension (S1) 4 Good Abduction 4 Good External Rotation 4+ Good+ Internal Rotation 4+ Good+ Comments no pain during MMT Left Flexion (L2) 5 Normal Extension (S1) 4 Good Abduction 4 Good External Rotation 4+ Good+ Internal Rotation 4+ Good+ Comments no pain during MMT Knee Strength Knee Manual Muscle Testing Right Flexion (S2) 4 Good Comments no pain during MMT Left Flexion (S2) 4 Good Extension (L3) 4 Good Comments no pain during MMT Ankle/Foot Strength Ankle and Foot Manual Muscle Testing Right Dorsiflexion (L4) 5 Normal Plantarflexion (S1) 5 Normal Comments no pain during MMT Left Dorsiflexion (L4) 5 Normal Plantarflexion (S1) 5 Normal Comments no pain during MMT PT-OP-Q Treatments Start: 10/01/18 12:50 Freq: Status: Active Protocol: Document 11/22/18 14:30 DCW (Rec: 11/22/18 15:13 DCW [id number]) Cardio Equipment Treadmill Duration (Minutes) 10 Speed 3.0 Incline 0 Other .50 miles Gym Equipment Shuttle Balance 1 Details Red Comments Wide OLEG, Staggered Stance Therapeutic Exercises Standing Exercises 6 Standing Exercise Name Sidestepping Resistance yellow loop band Equipment Used B UE support // bars Comments 1 lap in bars 4 Standing Exercise Name Calf Raises Resistance // bars, B UE support Equipment Used 4# ankle wt Reps/Minutes x20 3 Standing Exercise Name Hip extension Side bilateral Equipment Used // bars, B UE support,4# wts Reps/Minutes 2x10 each, Comments VCs to avoid lordosis 2 Standing Exercise Name Hip abduction Side bilateral Resistance 4# ankle weights Reps/Minutes 2x15 Comments VCs to avoid hip ER 1 Standing Exercise Name Mini Squats Equipment Used // bars B UE support Reps/Minutes 2x15 Comments good technique Neuro Re-Education Treatment Balance Activities 7 Details HT on foam Comments EO 5 Details foam balance Comments harrison EO/ EC 4 Details Tandem ambulation Vestibular Rehabilitation X1 Viewing Comments on harrison foam PT-OP-T Assessment and Plan Start: 09/29/18 12:54 Freq: Status: Active Protocol: Document 11/22/18 14:30 DCW (Rec: 11/22/18 15:13 DCW [id number]) Physical Therapy Assessment Assessment Summary Assessment Pt showed no indications of her previous symptoms of dizziness during therapy today , noted she has had a good week. but is unsure if it is a lasting fix. Physical Therapy Plan Frequency and Duration Frequency of Treatment 1-2x/week Duration of Treatment 10 weeks Plan of Care Start Date 09/29/18 Plan of Care End Date 12/08/18 Next Visit Focus/Plan Next Note Type Treatment Note Next Visit Plan Continue LE strengthening and balance
--- NOTE | 2018-12-01 08:54 | PT.OPDS ---
Current Diagnoses Other symptoms and signs involving the musculoskeletal system (11/22/18) Dizziness and giddiness (11/22/18) Provider Visit Care Team Role Provider Type Jey Phillip MD Attending Provider Physician Primary Care Provider Specialty: Internal Medicine Address: [address] [place] [address], [phone] Email: Visit Number Visit Number 6 Discharge Summary PT-OP-B Current Condition Start: 09/29/18 12:54 Freq: Status: Active Protocol: Document 09/29/18 13:45 BS (Rec: 09/29/18 13:16 BS [id number]) Current Condition History of Current Condition History of Current Condition Pt complains of unsteadiness on her feet, imbalance, weakness, and back pain. She reports that at times she feels fine, but that at other times her balance just feels off and she feels like she may fall, she describes this as dizziness but denies sensation of spinning or symptoms of vertigo. Pt reports this happens several times a day and that it is often unpredictable with the exception of walking >1 hr. Pt denies a history of falls and states that she is always able to regain a LOB on her own with and without external support. Pt does not use an AD and states that she also has chronic bilateral plantar fasciitis. She was diagnosed with PD last month, but questions diagnosis and not willing to accept that that is whats going on as her only sign is B UE tremors, which have reduced with carbidopa- levodopa medications. Developmental History Developmental History Osteoporosis Parkinson's Disease Thyroid Disorder Prior Functional Status Baseline Function- ADL's Independent Baseline Function- Mobility Independent Baseline Function- Gait Independent without use of AD Baseline Function- Work/School Pt is retired. Baseline Function- Recreation/Hobbies Pt reports being able to walk for >1 hr within the last year without disequillibrium, B LE weakness, back pain. Current Functional Impairments (Reported) Functional Limitations- ADL's Pt reports inability to walk around house when feeling off balance. She is unable cook and has difficulty cleaning, showering, and completing other ADLs that require her to be standing due to disequillibrium and fear of falling. Functional Limitations- Mobility/Gait All gait and functional mobility on feet limited due to decreased balance. Pt reports that she furniture walks when feeling off balance in her home. Functional Limitations- Recreation/ Currently unable to walk for > Hobbies 1 hour due to imbalance. When pt is feeling off-balance she does not walk at all due to fear of falling. Personal Factors Other Personal Factors That May Effect osteoporosis Therapy/Recovery back pain Parkinson's Disease PT-OP-C Subjective Start: 09/29/18 12:54 Freq: Status: Active Protocol: Document 11/22/18 14:30 DCW (Rec: 11/22/18 15:13 DCW [id number]) OP-PT Subjective Patient Comments Patient Comments I've been away for a month, so I kind of feel like I'm starting over. Pt does note that her disequillibrium has been better recently. PT-OP-D Balance Start: 09/29/18 12:54 Freq: Status: Active Protocol: Document 10/02/18 15:17 BS (Rec: 10/02/18 15:37 BS [email or web address]) Balance Tests Single Limb Standing Single Limb- Right 20 sec, 27 sec, 25 sec Single Limb- Left 6 sec, 5 sec, 15 sec PT-OP-E Functional Tests Start: 09/29/18 12:54 Freq: Status: Active Protocol: Document 09/29/18 13:45 BS (Rec: 10/01/18 12:50 BS [email or web address]) Functional Tests Dynamic Gait Index (DGI) Score 23 DGI Impairment Rating 1 to <20% Impaired (Score 20- 23) Other 1 Name of Test 30 second sit to stand Score 14 Comment not at increased risk for falls. PT-OP-G Mobility & Gait Start: 09/29/18 12:54 Freq: Status: Active Protocol: Document 09/29/18 13:45 BS (Rec: 10/01/18 12:50 BS [email or web address]) OP Mobility Evaluation Bed Mobility Rolling Independent use of UEs Supine to and from Sit Independent use of UEs Transfers Sit to Stand Independent no use of UEs Car Transfers Pt does not reort difficulty with car transfers and is able to do independently. Floor Transfers Pt reports that she would be able to get up off of the floor without external support in the event of a fall. OP Gait Assessment Gait Gait Assistance Required: Independent Able to Maintain Weight Bearing Status Yes During Gait Assistive Devices Assistive Device None Gait Deviations General Gait Pattern Within Normal Limits Flexed Trunk Comments Gait Comments Pt ambulated in clinic without use of AD and without evidence of imbalance. She does exhibit slighly flexed trunk posture. Pt reports that when she is feeling imbalanced she is unable to walk without grabbing onto nearby furniture or levine. PT-OP-H Neuro Start: 09/29/18 12:54 Freq: Status: Active Protocol: Document 09/29/18 13:45 BS (Rec: 10/01/18 12:50 BS [email or web address]) Coordination Evaluation Upper Extremity Tests Right Finger to Nose Test Normal Performance Left Finger to Nose Test Normal Performance PT-OP-J Posture/Palpation/Skin Start: 09/29/18 12:54 Freq: Status: Active Protocol: Document 09/29/18 13:45 BS (Rec: 10/01/18 12:50 BS [email or web address]) Posture Evaluation Position Standing Evaluation View Anterior Head/C-Spine Posture Forward Head Shoulder Posture (L) Rounded (R) Rounded Comments Posture Comments Pt demo's forward head and rounded shoulders bilaterally, slight increase in trunk flexion. PT-OP-M Strength Start: 09/29/18 12:54 Freq: Status: Active Protocol: Document 09/29/18 13:45 BS (Rec: 10/01/18 12:50 BS [email or web address]) Hip Strength Hip Manual Muscle Testing Right Flexion (L2) 5 Normal Extension (S1) 4 Good Abduction 4 Good External Rotation 4+ Good+ Internal Rotation 4+ Good+ Comments no pain during MMT Left Flexion (L2) 5 Normal Extension (S1) 4 Good Abduction 4 Good External Rotation 4+ Good+ Internal Rotation 4+ Good+ Comments no pain during MMT Knee Strength Knee Manual Muscle Testing Right Flexion (S2) 4 Good Comments no pain during MMT Left Flexion (S2) 4 Good Extension (L3) 4 Good Comments no pain during MMT Ankle/Foot Strength Ankle and Foot Manual Muscle Testing Right Dorsiflexion (L4) 5 Normal Plantarflexion (S1) 5 Normal Comments no pain during MMT Left Dorsiflexion (L4) 5 Normal Plantarflexion (S1) 5 Normal Comments no pain during MMT PT-OP-T Assessment and Plan Start: 09/29/18 12:54 Freq: Status: Active Protocol: Document 12/01/18 08:49 AMB (Rec: 12/01/18 08:54 AMB [email or web address]) Physical Therapy Assessment Goals One Impairment lack of HEP Short Term Goal (STG) Pt will become independent with an initial HEP for bilateral lower extremity strengthening and balance to maximize rehabilitation potentional outside of formal PT sessions. STG Duration MET Set Up Person Goal (LTG) Pt to demonstrate at least 4+/ 5 strength with bilateral hip extension, abduction, and knee flexion to improve pt ability to complete ADLs without weakness and fatigue. LTG Duration not assessed Two Impairment Balance Short Term Goal (STG) Pt will maintain position 4 of modified CTSIB for at least 15 seconds without LOB to promote safety and reduced fall risk in low-lit environments. STG Duration not assessed Set Up Person Goal (LTG) Pt will score at least a 50 on the Activities Specific Confidence Scale, demonstrating subjective improvements in balance confidence with daily and recreational activities. LTG Duration not assessed Assessment Summary Assessment Juan called in to cancel her last scheduled appointment stating that she feels about back to normal. The reason for her disequilibrium was never really established in physical therapy, but since she canceled her appointment we did not full re-assess her goals. Physical Therapy Plan Discharge Physical Therapy Discharge Reasons Patient Request Discharge Comments Pt feels back to baseline
== END 2018-12-01 10:00 | disposition home or self-care (01) ==
LOC: PHYS 14:30
PROVIDERS: PCP Student in an Organized Health Care Education/Training Program; Visit Provider Student in an Organized Health Care Education/Training Program
DX: R29.898 Other symptoms and signs involving the musculoskeletal system (principal); R42 Dizziness and giddiness
CPT/HCPCS: 97110; 97112; 97161

== ENCOUNTER → 2019-02-26 14:05 | Outpatient (CLI) | payer MEDICARE, BC, SELFPAY ==
[2019-02-26 14:46] LABS: Appearance Urine UA SL CLOUDY; Bilirubin Urine UA NEGATIVE (NEGATIVE); Color Urine UA YELLOW; Glucose Urine UA NEGATIVE (Negative); Ketones Urine UA NEGATIVE (NEGATIVE); Leukocyte Esterase Urine UA 1+ (NEGATIVE); Nitrite Urine UA NEGATIVE (Negative); Occult Blood Urine UA TRACE-LYSED (Negative); Protein Urine UA NEGATIVE (Negative); Specific Gravity Urine UA <=1.005 (1.000-1.035); Urobilinogen Urine UA 0.2 E.U./dL (0.2)
[2019-02-26 15:06] LABS: pH Urine UA 5.5 (4.5-8.0)
[2019-02-26 15:07] LABS: Bacteria Urine Few (2-10); Culture Indicated Urine Specimen Cultured; RBC Urine 1-5/HPF (0-5/HPF); Squamous Epithelial Cell Urine 0-1 /HPF (0-5/HPF); WBC Urine 30-100/HPF (0-5/HPF)
== END ==
PROVIDERS: PCP Student in an Organized Health Care Education/Training Program; Visit Provider Family Medicine
DX: R39.89 Other symptoms and signs involving the genitourinary system (principal)
CPT/HCPCS: 81001; 87077; 87086; 87186

== ENCOUNTER 2019-03-05 14:48 | Emergency (ER) | payer MEDICARE, BC, SELFPAY ==
[2019-03-05 14:52] VITALS: BP 111/64; PULSE 80; RESP 18; TEMP 36.7; O2SAT 98
[2019-03-05 15:23] LABS: Add Manual Diff / Slide Review NO; Basophils Absolute Auto 0 /uL (0-100); Basophils Percent Auto 0.3 % (0-2); Eosinophils Absolute Auto 200 /uL (0-450); Eosinophils Percent Auto 5.3 % (2-4); Hemoglobin 13.7 g/dL (12.0-16.0); Lymphocytes Absolute Auto 700 /uL (1100-4500); Lymphocytes Percent Auto 16.6 % (25-40); Mean Corpuscular HGB Conc 34.3 % (30-36); Mean Corpuscular Hemoglobin 29.2 PG (26-34); Mean Corpuscular Volume 85.1 fL (80-100); Monocytes Absolute Auto 700 /uL (0-900); Monocytes Percent Auto 16.2 % (3-14); Neutrophils Absolute Auto 2700 /uL (1500-7000); Neutrophils Percent Auto 61.6 % (50-75); Platelet Count 245 X10^3/uL (150-400); Red Cell Distribution Width 12.6 % (11.6-14.8); White Blood Cell Count 4.3 X10^3/uL (4.5-11.0)
--- NOTE | 2019-03-05 15:23 | ED.GIBLEED ---
HPI - GI Bleed General Chief complaint: GI Bleed Stated complaint: Dizziness and black vomiting Time Seen by Provider: 03/05/19 15:20 Source: patient Mode of arrival: Ambulatory Limitations: no limitations History of Present Illness HPI Narrative: Patient is a 73-year-old female who presents with vomiting. She says she has been vomiting for the last 3 days she threw up once today but it was clear. Yesterday she threw up multiple times but said it was black. She denies coffee grounds. She does have black stool stool but takes iron. In fact she has been constipated for almost a week however this morning she had a normal large bowel movement however was black. She feels a little dizzy and lightheaded when she moves she says that comes and goes. Onset (ago): day(s) Related Data Home Medications Medication Instructions Recorded Confirmed Lumigan 1 drp OPHTHALMIC (EYE) DIRECTED 08/29/17 03/05/19 #0 Restasis 1 drp OPHTH DIRECTED #0 08/29/17 03/05/19 [simply sleep] 0.5 tab PO DAILY #0 08/29/17 03/05/19 ascorbic acid (vitamin C) 500 mg PO DAILY #0 08/29/17 03/05/19 cyanocobalamin (vitamin B-12) 1,000 mcg IM X1 #0 08/29/17 03/05/19 ferrous gluconate 240 mg PO QDAY #0 08/29/17 03/05/19 aspirin 81 mg PO DAILY 03/05/19 03/05/19 calcium carbonate 1 tab PO TID 03/05/19 03/05/19 cholecalciferol (vitamin D3) 800 unit PO DAILY 03/05/19 03/05/19 [Vitamin D3] levothyroxine [Synthroid] 75 mcg PO DAILY 03/05/19 03/05/19 meclizine 25 mg PO PRN PRN 03/05/19 03/05/19 Previous Rx's Medication Instructions Recorded carbidopa 10 mg-levodopa 100 mg 1 tab PO TID #90 tab 09/20/18 tablet metronidazole 0.75 % lotion 0.75 % TOPICAL QDAY #59 ml 11/02/18 sulfamethoxazole 800 1 tab PO BID #14 tab 02/26/19 mg-trimethoprim 160 mg tablet ondansetron 4 mg PO Q8H PRN #10 tab 03/05/19 Allergies Allergy/AdvReac Type Severity Reaction Status Date / Time lactase [From DAIRY AID] Allergy Intermediate Verified 03/05/19 14:55 iodine [IODINE] Allergy Mild HIVES Verified 03/05/19 14:55 alendronate sodium AdvReac Mild Vomiting Verified 03/05/19 14:55 Review of Systems Review of Systems ROS Unobtainable: All systems reviewed & are unremarkable except as noted in HPI and below Constitutional Constitutional: Denies chills, Denies fever(s), Denies frequent falls, Reports poor appetite and Reports weakness Eyes Eyes: Denies change in vision, Denies eye discharge, Denies irritation and Denies loss of vision ENT Ears, Nose, Mouth, and Throat: Denies change in voice, Denies neck pain and Denies sore throat Cardiovascular Cardiovascular: Denies chest pain, Denies rapid heart rate, Denies irregular heart rhythm, Reports lightheadedness, Denies dyspnea and Denies dyspnea on exertion Respiratory Respiratory: Denies cough, Denies dyspnea, Denies dyspnea on exertion and Denies wheezing Gastrointestinal Gastrointestinal: Reports as per HPI Genitourinary Genitourinary: Denies hematuria, Denies flank pain, Denies urinary incontinence and Denies urinary urgency Musculoskeletal Musculoskeletal: Denies neck pain Integumentary/Breasts Skin/Breast: Denies pruritus, Denies erythema, Denies rash and Denies wounds Neurologic Neurologic: Denies frequent falls, Denies loss of vision and Reports weakness Allergic/Immunologic Allergic/Immunologic: Denies wheezing PFSH Medical History Chronic constipation (Chronic) 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 HEENT: Head atraumatic,EOMI, pupils reactive, face symmetric, CARDIOVASCULAR: Regular rate and rhythm without murmurs, rubs or gallops. RESPIRATORY: Breath sounds equal bilaterally, no wheezes rales or rhonchi. ABDOMEN: Soft, nontender. Normoactive bowel sounds all 4 quadrants. No guarding or rebound. RECTAL: Hemoccult-negative black stool : No CVA tenderness EXTREMITIES: Normal range of motion, no clubbing or edema. Neurovascularly intact NEUROLOGICAL: Alert and oriented x4.Normal gait and speech. Cranial nerves II through XII grossly intact. SKIN: Warm, dry, no laceration, no petechiae, no rashes or lesions. Course Orders Ordered: ED Orders 03/05/19 14:56 EKG-12 Lead Stat 03/05/19 15:00 Complete Blood Count AUTO DIFF Stat Comprehensive Metabolic Panel Stat Lactate (Lactic Acid) Stat Partial Thromboplastin Time Stat Prothrombin Time INR Stat Type and Screen Stat Discontinued Medications Sodium Chloride (Normal Saline 0.9%) 1,000 mls @ 1,000 mls/hr IV BOLUS ONE Stop: 03/05/19 16:37 Last Infusion: 03/05/19 17:10 Dose: 0 mls/hr Documented by: Admin: 03/05/19 15:47 Dose: 1,000 mls/hr Documented by: MANPREET Ondansetron HCl (Zofran) 4 mg IV NOW ONE Stop: 03/05/19 14:56 Last Admin: 03/05/19 15:18 Dose: Not Given Documented by: MANPREET Pantoprazole Sodium (Protonix) 40 mg IV NOW ONE Stop: 03/05/19 15:33 Last Admin: 03/05/19 15:46 Dose: 40 mg Documented by: MANPREET Vital Signs Vital signs: Vital Signs - 8 hr 03/05/19 14:52 03/05/19 16:03 03/05/19 16:48 Temperature 98.1 F Pulse Rate 80 74 74 Respiratory Rate 18 18 18 Blood Pressure 111/64 Blood Pressure [Right Arm] 106/61 111/60 Pulse Oximetry 98 98 95 03/05/19 17:50 Temperature Pulse Rate 64 Respiratory Rate 18 Blood Pressure Blood Pressure [Right Arm] 110/61 Pulse Oximetry 98 MDM - GI Bleed Lab Data Attestation: I reviewed the patient's lab results. Result diagrams: 03/05/19 15:00 03/05/19 15:00 Labs: Lab Results 03/05/19 03/05/19 03/05/19 Range/Units 15:00 15:00 15:00 WBC 4.3 L (4.5-11.0) X10^3/uL RBC 4.70 (4.0-5.2) X10^6/uL Hgb 13.7 (12.0-16.0) g/dL Hct 40.0 (36-46) % MCV 85.1 (80-100) fL MCH 29.2 (26-34) PG MCHC 34.3 (30-36) % RDW 12.6 (11.6-14.8) % Plt Count 245 (150-400) X10^3/uL Neut % (Auto) 61.6 (50-75) % Lymph % (Auto) 16.6 L (25-40) % [place] % (Auto) 16.2 H (3-14) % Eos % (Auto) 5.3 H (2-4) % Baso % (Auto) 0.3 (0-2) % Neut # (Auto) 2700 (4784-9292) /uL Lymph # (Auto) 700 L (6190-6658) /uL [place] # (Auto) 700 (0-900) /uL Eos # (Auto) 200 (0-450) /uL Baso # (Auto) 0 (0-100) /uL PT 12.9 H (10.1-12.7) SECONDS INR 1.1 (0.9-1.3) APTT 28 (26.4-36.2) SECONDS Sodium 128 L (137-145) mmol/L Potassium 3.7 (3.4-5.1) mmol/L Chloride 95 L (98-107) mmol/L Carbon Dioxide 21 L (22-32) mmol/L BUN 19 H (7-17) mg/dL Creatinine 1.10 H (0.52-1.04) mg/dL Estimated GFR 48.4 L (>60) mL/min BUN/Creatinine Ratio 17.3 (6-22) Glucose 136 H (80-110) mg/dL Lactate (0.7-2.1) mmol/L Calcium 8.8 (8.4-10.2) mg/dL Total Bilirubin 0.3 (0.2-1.3) mg/dL AST 44 H (14-36) IU/L ALT < 6 L (9-52) IU/L Alkaline Phosphatase 83 (38-126) U/L Total Protein 7.7 (6.3-8.2) g/dL Albumin 4.1 (3.5-5.0) g/dL Globulin 3.6 (1.7-4.1) g/dL Albumin/Globulin Ratio 1.1 (1.0-2.8) Blood Type Antibody Screen 03/05/19 03/05/19 Range/Units 15:00 15:00 WBC (4.5-11.0) X10^3/uL RBC (4.0-5.2) X10^6/uL Hgb (12.0-16.0) g/dL Hct (36-46) % MCV (80-100) fL MCH (26-34) PG MCHC (30-36) % RDW (11.6-14.8) % Plt Count (150-400) X10^3/uL Neut % (Auto) (50-75) % Lymph % (Auto) (25-40) % [place] % (Auto) (3-14) % Eos % (Auto) (2-4) % Baso % (Auto) (0-2) % Neut # (Auto) (1013-6122) /uL Lymph # (Auto) (5976-3596) /uL [place] # (Auto) (0-900) /uL Eos # (Auto) (0-450) /uL Baso # (Auto) (0-100) /uL PT (10.1-12.7) SECONDS INR (0.9-1.3) APTT (26.4-36.2) SECONDS Sodium (137-145) mmol/L Potassium (3.4-5.1) mmol/L Chloride (98-107) mmol/L Carbon Dioxide (22-32) mmol/L BUN (7-17) mg/dL Creatinine (0.52-1.04) mg/dL Estimated GFR (>60) mL/min BUN/Creatinine Ratio (6-22) Glucose (80-110) mg/dL Lactate 1.3 (0.7-2.1) mmol/L Calcium (8.4-10.2) mg/dL Total Bilirubin (0.2-1.3) mg/dL AST (14-36) IU/L ALT (9-52) IU/L Alkaline Phosphatase (38-126) U/L Total Protein (6.3-8.2) g/dL Albumin (3.5-5.0) g/dL Globulin (1.7-4.1) g/dL Albumin/Globulin Ratio (1.0-2.8) Blood Type A Negative Antibody Screen Negative Point of Care Testing Stool Occult Blood Negative ECG Data Attestation: I personally reviewed and interpreted this ECG as follows: Prior ECG tracings: not available for review Interpretation: Normal sinus Rhythm rate 76 p.r. interval is 166 QRS 82 QTC 388 No sign of ischemia no ST changes regular intervals MDM Narrative Medical decision making narrative: Patient received a L of IV fluids. Her abdomen remains soft and [place] for to need any sort of imaging at this time. Hemodynamically stable no active bleeding. Guaiac was negative she vomited black stuff yesterday but vomited once clear with stuff today. Possible gastric ulcer over seems to have resolved. Hemoglobin hematocrit are stable. No vomiting in the ED. She has no pain. She is feeling better after IV fluids. At this time she feels ready and able to go. Discharge Plan Departure Patient Disposition: Home Clinical Impression: Vomiting Qualifiers: Vomiting type: unspecified Vomiting Intractability: non-intractable Nausea presence: with nausea Qualified Code(s): R11.2 - Nausea with vomiting, unspecified Discharge Date/Time: 03/05/19 18:17 Instructions: DI for Vomiting -- Adult Activity Restrictions/Additional Instructions: *You have been diagnosed with vomiting *What to do: No active bleeding at this time. Increase fluids as tolerated. *Continue to take medications as directed Although Zofran 4 mg every 8 hours if needed for nausea or vomiting *Follow up with your primary care provider in 2-3 days *Return to ER if you should have vomiting the coffee ground, bright red or black or any new, worsening or concerning symptoms Prescriptions: New ondansetron 4 mg tablet,disintegrating 4 mg PO Q8H PRN (Reason: nausea and vomiting) Qty: 10 RF: 0 No Action ascorbic acid (vitamin C) 500 MG tablet 500 mg PO DAILY Qty: 0 RF: 0 ferrous gluconate 240 MG tablet 240 mg PO QDAY Qty: 0 RF: 0 Restasis 1 EACH dropperette 1 drp OPHTH DIRECTED Qty: 0 RF: 0 Lumigan 0.01 % drops 1 drp ophthalmic (eye) DIRECTED Qty: 0 RF: 0 cyanocobalamin (vitamin B-12) 1,000 MCG/1 ML solution 1,000 mcg IM X1 Qty: 0 RF: 0 [simply sleep] 0.5 tab PO DAILY Qty: 0 RF: 0 metronidazole [MetroLotion] 0.75 % lotion 0.75 % Topical QDAY Qty: 59 RF: 11 sulfamethoxazole-trimethoprim [Bactrim DS] 800-160 mg tablet 1 tab PO BID Qty: 14 RF: 0 carbidopa-levodopa [Sinemet] 10-100 mg tablet 1 tab PO TID Qty: 90 RF: 11 levothyroxine [Synthroid] 75 mcg tablet 75 mcg PO DAILY RF: 0 meclizine 25 mg Tablet 25 mg PO PRN PRN (Reason: vomiting or dizziness) RF: 0 aspirin 81 mg Tablet,Delayed Release (Dr/Ec) 81 mg PO DAILY RF: 0 cholecalciferol (vitamin D3) [Vitamin D3] 400 unit Tablet 800 unit PO DAILY RF: 0 calcium carbonate 1 tab PO TID RF: 0 Referrals: Jey Phillip MD [Primary Care Provider] -
[2019-03-05] MEDS: PANTOPRAZOLE 40 MG VIAL IV (15:46)
[2019-03-05] MEDS: SODIUM CHLORIDE 0.9% 1,000 ML 1000 ML IV (15:47)
[2019-03-05 16:03] VITALS: BP 106/61; PULSE 74; RESP 18; O2SAT 98
[2019-03-05 16:09] LABS: INR 1.1 (0.9-1.3); Prothrombin Time 12.9 SECONDS (10.1-12.7)
[2019-03-05 16:12] LABS: PTT Partial Thromboplastin Tim 28 SECONDS (26.4-36.2)
[2019-03-05 16:31] LABS: Lactate (Lactic Acid) 1.3 mmol/L (0.7-2.1)
[2019-03-05 16:33] LABS: Albumin 4.1 g/dL (3.5-5.0); Albumin Globulin Ratio 1.1 (1.0-2.8); Alkaline Phosphatase 83 U/L (38-126); Aspartate Aminotransferase 44 IU/L (14-36); BUN Creatinine Ratio 17.3 (6-22); Bilirubin Total 0.3 mg/dL (0.2-1.3); Blood Urea Nitrogen 19 mg/dL (7-17); Calcium 8.8 mg/dL (8.4-10.2); Carbon Dioxide 21 mmol/L (22-32); Chloride 95 mmol/L (98-107); Estimated Glomerular Filt Rate 48.4 mL/min (>60); Globulin 3.6 g/dL (1.7-4.1); Glucose 136 mg/dL (80-110); HEMOLYSIS 21 (0-50); Potassium 3.7 mmol/L (3.4-5.1); Sodium 128 mmol/L (137-145); Total Protein 7.7 g/dL (6.3-8.2)
[2019-03-05 16:34] LABS: Alanine Aminotransferase < 6 IU/L (9-52)
[2019-03-05 16:48] VITALS: BP 111/60; PULSE 74; RESP 18; O2SAT 95
[2019-03-05 17:50] VITALS: BP 110/61; PULSE 64; RESP 18; O2SAT 98
== END 2019-03-05 18:17 | disposition home or self-care (01) ==
PROVIDERS: Emergency Provider Emergency Medicine; PCP Student in an Organized Health Care Education/Training Program
DX: R11.2 Nausea with vomiting, unspecified (principal)
CPT/HCPCS: 36415; 80053; 82272; 83605; 85025; 85610; 85730; 86850; 86900; 86901; 93005; 96361; 96374; 99284; C9113

== ENCOUNTER 2019-03-31 20:31 | Inpatient (IN) | payer MEDICARE, BC, SELFPAY ==
--- NOTE | 2019-03-31 20:44 | ED.NAVMDI ---
HPI - Nausea/Vomiting/Diarrhea General Chief complaint: Nausea/Vomiting/Diarrhea Stated complaint: thinks dehydrated,vomiting,rash Time Seen by Provider: 03/31/19 20:33 Source: patient and family Mode of arrival: Ambulatory Limitations: no limitations History of Present Illness HPI Narrative: 73-year-old female nonsmoker with history of Parkinson's presents with a chief complaint of a few days of nausea, vomiting and diarrhea as well as shaking chills since this morning. She feels like she is dehydrated has become dizzy, weak and lightheaded. She denies any recent antibiotics or exposure to bad food but recently travel to [facility]. She had been seen about a month ago for similar circumstances without any profound findings. She has had some vague episodes of abdominal pain which are fleeting, she denies provocation, palliation or radiation. MD complaint: nausea, vomiting and diarrhea Onset (ago): day(s) Description of Vomiting: watery and bilious Description of Diarrhea: watery Associated Abdominal Pain: Yes Location of pain: diffuse Severity: moderate Quality: cramping and aching Pain Consistency: now resolved Relieving factors: none Exacerbating factors: none Context: foreign travel Associated symptoms: fever/chills, loss of appetite and malaise Related Data Home Medications Medication Instructions Recorded Confirmed Lumigan 1 drp OPHTHALMIC (EYE) DIRECTED 08/29/17 04/01/19 #0 Restasis 1 drp OPHTH DIRECTED #0 08/29/17 04/01/19 [simply sleep] 0.5 tab PO DAILY #0 08/29/17 03/07/19 ascorbic acid (vitamin C) 500 mg PO DAILY #0 08/29/17 04/01/19 cyanocobalamin (vitamin B-12) 1,000 mcg IM X1 #0 08/29/17 04/01/19 ferrous gluconate 240 mg PO QDAY #0 08/29/17 04/01/19 aspirin 81 mg PO DAILY 03/05/19 04/01/19 calcium carbonate 1 tab PO TID 03/05/19 04/01/19 cholecalciferol (vitamin D3) 800 unit PO DAILY 03/05/19 04/01/19 [Vitamin D3] levothyroxine [Synthroid] 75 mcg PO DAILY 03/05/19 04/01/19 meclizine 25 mg PO PRN PRN 03/05/19 04/01/19 carbidopa-levodopa [Sinemet] 1 tab PO DAILY 04/01/19 04/01/19 Previous Rx's Medication Instructions Recorded metronidazole 0.75 % lotion 0.75 % TOPICAL QDAY #59 ml 11/02/18 sulfamethoxazole 800 1 tab PO BID #14 tab 02/26/19 mg-trimethoprim 160 mg tablet ondansetron 4 mg PO Q8H PRN #10 tab 03/05/19 Allergies Allergy/AdvReac Type Severity Reaction Status Date / Time lactase [From DAIRY AID] Allergy Intermediate Verified 03/07/19 14:04 iodine [IODINE] Allergy Mild HIVES Verified 03/07/19 14:04 alendronate sodium AdvReac Mild Vomiting Verified 03/07/19 14:04 Review of Systems Constitutional Constitutional: Reports body ache(s), Reports chills, Reports fatigue, Denies fever(s), Denies frequent falls, Denies lethargy and Reports weakness Eyes Eyes: Denies change in vision, Denies eye discharge, Denies irritation and Denies loss of vision ENT Ears, Nose, Mouth, and Throat: Denies change in voice, Denies dizziness, Denies neck pain, Denies sore throat and Denies throat swelling Cardiovascular Cardiovascular: Denies chest pain, Denies irregular heart rhythm, Denies lightheadedness, Denies palpitations, Denies dyspnea, Denies dyspnea on exertion and Denies orthopnea Respiratory Respiratory: Denies cough, Denies dyspnea, Denies dyspnea on exertion and Denies wheezing Gastrointestinal Gastrointestinal: Denies change in bowel habits, Reports diarrhea, Denies nausea and Reports vomiting Genitourinary Genitourinary: Denies hematuria, Denies flank pain, Denies urinary incontinence and Denies urinary urgency Musculoskeletal Musculoskeletal: Denies back pain, Denies muscle weakness, Denies neck pain, Denies numbness and Denies tingling Integumentary/Breasts Skin/Breast: Denies pruritus, Denies erythema, Denies rash and Denies wounds Neurologic Neurologic: Denies behavioral changes, Denies confusion, Denies dizziness, Denies frequent falls, Denies loss of vision, Denies numbness, Denies tingling and Reports weakness Psychiatric Psychiatric: Denies anxiety, Denies behavioral changes, Denies confusion, Denies depression, Denies homicidal ideation and Denies suicidal ideation Endocrine Endocrine: Reports fatigue, Denies flushing and Denies palpitations Hematologic/Lymphatic Hematologic/Lymphatic: Denies easy bruising Allergic/Immunologic Allergic/Immunologic: Denies urticaria, Denies throat swelling and Denies wheezing Patient History Medical History Chronic constipation (Chronic) 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 Well-nourished, well-developed patient, in mild distress. Pale, diaphoretic, unwell appearing HEAD: Atraumatic. Normocephalic. EYES: Pupils equal round and reactive. Extraocular motions intact. No scleral icterus. No injection or drainage. ENT: Nose without bleeding, purulent drainage. Throat without erythema, tonsillar hypertrophy or exudate. Airway patent. NECK: Trachea midline. Non tender CARDIOVASCULAR: Regular rate and rhythm without murmurs, gallops, or rubs. RESPIRATORY: Clear to auscultation. Breath sounds equal bilaterally. No wheezes, rales, or rhonchi. GASTROINTESTINAL: Abdomen soft, non-tender, nondistended. EXTREMITIES: No edema or joint tenderness. BACK: Nontender without deformity or crepitance. No flank tenderness. NEURO: AOx3. SKIN: No rash or erythema of visible areas Initial Vital Signs Initial Vital Signs: Vital Signs Temperature 97.4 F L 03/31/19 20:47 Pulse Rate 107 H 03/31/19 20:47 Respiratory Rate 19 03/31/19 20:47 Blood Pressure 99/58 L 03/31/19 20:47 Pulse Oximetry 97 03/31/19 20:47 Course Course Course Narrative: on arrival patient appears quite ill, tachycardic and hypotensive with chills. Sepsis orders placed, patient given fluids, labs ordered. Initial lactate over 4, fluid order increased to 30mL/kg+, ABX ordered. CXR and urine clear. Patient feels MUCH better after fluids, lactate improved, patient still orthostatic. Needs hospitalization due to concern for sepsis and need for stabilization of condition and ongoing evaluation. Orders Ordered: ED Orders 03/31/19 20:48 Complete Blood Count AUTO DIFF Stat Comprehensive Metabolic Panel Stat Free T4 Free Thyroxine Stat Procalcitonin Stat Thyroid Stimulating Hormone Stat 03/31/19 20:54 XR chest 1V Stat Fecal Leukocytes Stat Stool Culture Stat 03/31/19 20:57 GI Panel (Film Array) Stat 03/31/19 21:05 Lactate (Lactic Acid) Stat 03/31/19 21:15 Blood Culture Stat 04/01/19 01:06 XR abdomen min 2V Stat Potassium Chloride 40 meq/ (Sodium Chloride) 520 mls @ 130 mls/hr IV NOW ONE Stop: 04/01/19 06:35 Discontinued Medications Sodium Chloride (Normal Saline 0.9%) 1,000 mls @ 1,000 mls/hr IV BOLUS ONE Stop: 03/31/19 21:53 Last Infusion: 03/31/19 22:22 Dose: 0 mls/hr Documented by: Admin: 03/31/19 21:14 Dose: 1,000 mls/hr Documented by: ROSEANNA Ceftriaxone Sodium/Dextrose (Rocephin) 1 gm in 50 mls @ 100 mls/hr IV NOW ONE Stop: 03/31/19 23:21 Last Infusion: 03/31/19 23:38 Dose: 0 mls/hr Documented by: Admin: 03/31/19 23:05 Dose: 100 mls/hr Documented by: ROSEANNA Sodium Chloride (Normal Saline 0.9%) 1,000 mls @ 1,000 mls/hr IV BOLUS ONE Stop: 03/31/19 23:51 Last Infusion: 04/01/19 00:08 Dose: 0 mls/hr Documented by: Admin: 03/31/19 23:06 Dose: 1,000 mls/hr Documented by: ROSEANNA Ketorolac Tromethamine (Toradol) 15 mg IV NOW ONE Stop: 03/31/19 20:58 Last Admin: 03/31/19 21:14 Dose: 15 mg Documented by: ROSEANNA Ondansetron HCl (Zofran) 4 mg IV NOW ONE Stop: 03/31/19 20:55 Last Admin: 03/31/19 21:14 Dose: 4 mg Documented by: ROSEANNA Vital Signs Vital signs: Vital Signs - 8 hr 10/26/19 20:47 03/31/19 21:51 03/31/19 23:00 Temperature 97.4 F L Pulse Rate 107 H 83 81 Pulse Rate [Orthostatic Lying] Pulse Rate [Orthostatic Sitting] Pulse Rate [Orthostatic Standing] Respiratory Rate 19 18 16 Blood Pressure 99/58 L Blood Pressure [Left Arm] 114/56 L 102/49 L Blood Pressure [Orthostatic Lying] Blood Pressure [Orthostatic Sitting] Blood Pressure [Orthostatic Standing] Pulse Oximetry 97 97 95 04/01/19 00:03 04/01/19 01:11 04/01/19 01:45 Temperature 98.9 F Pulse Rate 83 86 Pulse Rate [Orthostatic Lying] 83 Pulse Rate [Orthostatic Sitting] 101 H Pulse Rate [Orthostatic Standing] 104 H Respiratory Rate 16 16 Blood Pressure Blood Pressure [Left Arm] 91/47 L 99/44 L Blood Pressure [Orthostatic Lying] 92/43 L Blood Pressure [Orthostatic Sitting] 97/43 L Blood Pressure [Orthostatic Standing] 77/48 L Pulse Oximetry 95 95 MDM - Nausea/Vomiting/Diarrhea Lab Data Result diagrams: 03/31/19 20:48 03/31/19 20:48 Labs: Lab Results 03/31/19 03/31/19 03/31/19 Range/Units 20:48 20:48 20:48 WBC 4.3 L (4.5-11.0) X10^3/uL RBC 5.22 H (4.0-5.2) X10^6/uL Hgb 15.5 (12.0-16.0) g/dL Hct 46.2 H (36-46) % MCV 88.5 (80-100) fL MCH 29.6 (26-34) PG MCHC 33.5 (30-36) % RDW 14.2 (11.6-14.8) % Plt Count 276 (150-400) X10^3/uL Neut % (Auto) 84.8 H (50-75) % Lymph % (Auto) 13.6 L (25-40) % [place] % (Auto) 1.0 L (3-14) % Eos % (Auto) 0.3 L (2-4) % Baso % (Auto) 0.3 (0-2) % Neut # (Auto) 3700 (7350-8132) /uL Lymph # (Auto) 600 L (4955-4410) /uL [place] # (Auto) 0 (0-900) /uL Eos # (Auto) 0 (0-450) /uL Baso # (Auto) 0 (0-100) /uL Sodium 139 (137-145) mmol/L Potassium 3.3 L (3.4-5.1) mmol/L Chloride 103 (98-107) mmol/L Carbon Dioxide 22 (22-32) mmol/L BUN 18 H (7-17) mg/dL Creatinine 1.10 H (0.52-1.04) mg/dL Estimated GFR 48.4 L (>60) mL/min BUN/Creatinine Ratio 16.4 (6-22) Glucose 122 H (80-110) mg/dL Lactate (0.7-2.1) mmol/L Calcium 9.6 (8.4-10.2) mg/dL Total Bilirubin 0.7 (0.2-1.3) mg/dL AST 37 H (14-36) IU/L ALT 25 (9-52) IU/L Alkaline Phosphatase 120 (38-126) U/L Total Protein 8.6 H (6.3-8.2) g/dL Albumin 4.7 (3.5-5.0) g/dL Globulin 3.9 (1.7-4.1) g/dL Albumin/Globulin Ratio 1.2 (1.0-2.8) Procalcitonin 0.27 (<0.5) ng/mL TSH (0.47-4.68) uIU/mL Free T4 (0.78-2.19) ng/dL 03/31/19 03/31/19 03/31/19 Range/Units 20:48 21:05 23:30 WBC (4.5-11.0) X10^3/uL RBC (4.0-5.2) X10^6/uL Hgb (12.0-16.0) g/dL Hct (36-46) % MCV (80-100) fL MCH (26-34) PG MCHC (30-36) % RDW (11.6-14.8) % Plt Count (150-400) X10^3/uL Neut % (Auto) (50-75) % Lymph % (Auto) (25-40) % [place] % (Auto) (3-14) % Eos % (Auto) (2-4) % Baso % (Auto) (0-2) % Neut # (Auto) (5938-3240) /uL Lymph # (Auto) (1641-1502) /uL [place] # (Auto) (0-900) /uL Eos # (Auto) (0-450) /uL Baso # (Auto) (0-100) /uL Sodium (137-145) mmol/L Potassium (3.4-5.1) mmol/L Chloride (98-107) mmol/L Carbon Dioxide (22-32) mmol/L BUN (7-17) mg/dL Creatinine (0.52-1.04) mg/dL Estimated GFR (>60) mL/min BUN/Creatinine Ratio (6-22) Glucose (80-110) mg/dL Lactate 4.1 H* 2.4 H (0.7-2.1) mmol/L Calcium (8.4-10.2) mg/dL Total Bilirubin (0.2-1.3) mg/dL AST (14-36) IU/L ALT (9-52) IU/L Alkaline Phosphatase (38-126) U/L Total Protein (6.3-8.2) g/dL Albumin (3.5-5.0) g/dL Globulin (1.7-4.1) g/dL Albumin/Globulin Ratio (1.0-2.8) Procalcitonin (<0.5) ng/mL TSH 11.40 H (0.47-4.68) uIU/mL Free T4 1.60 (0.78-2.19) ng/dL Urine Dip Bedside Urine Glucose Negative Bedside Urine Bilirubin - Negative Bedside Urine Ketone - Negative Urine Specific [place] 1.020 Bedside Urine Occult Blood - Negative Bedside Urine pH 5.5 Bedside Urine Protein +/- 15 Bedside Urine Urobilinogen - Negative Bedside Urine Nitrite - Negative Bedside Urine Leukocytes - Negative Esterase Imaging Data Chest x-ray: Radiologist's impression: [address] [address] XRay Report Signed Patient: Juan Ye [facility]#: [id number] : 3Acct:[id number] Age/Sex: 73 / FDate of Service: 03/31/19 Loc: ED Accession Number: [id number] Procedure: XR chest 1V Ordering Provider: Jose Esparza D.O. PROCEDURE: XR CHEST 1V INDICATIONS: septic presentation TECHNIQUE: One view of the chest was acquired. COMPARISON: [facility], CHEST 2 VIEW, 04/20/2008, 11:59. FINDINGS: Surgical changes and devices: None. Lungs and pleura: Lungs are clear. No pleural effusions or pneumothorax. Mediastinum: Mediastinal contours appear normal. Heart size is normal. Bones and chest wall: No suspicious bony lesions. Overlying soft tissues appear unremarkable. IMPRESSION: No acute pulmonary process. Dictated by: Beata Ye M.D. on 03/31/2019 at 21:24 Approved by: Beata Ye M.D. on 03/31/2019 at 21:24 Discharge Plan Departure Patient Disposition: Admitted as Observation Clinical Impression: Acute dehydration, Orthostasis, Parkinsonism Discharge Date/Time: 04/01/19 02:16 Admit Date/Time: 04/01/19 01:49 Admit Provider: Christine Bailey
[2019-03-31 20:47] VITALS: BP 99/58; PULSE 107; RESP 19; TEMP 36.3; O2SAT 97; BMI 21.9
--- NOTE | 2019-03-31 20:54 | DI.RAD.S_ITS ---
PROCEDURE: XR CHEST 1V INDICATIONS: septic presentation TECHNIQUE: One view of the chest was acquired. COMPARISON: [facility], , CHEST 2 VIEW, 04/20/2008, 11:59. FINDINGS: Surgical changes and devices: None. Lungs and pleura: Lungs are clear. No pleural effusions or pneumothorax. Mediastinum: Mediastinal contours appear normal. Heart size is normal. Bones and chest wall: No suspicious bony lesions. Overlying soft tissues appear unremarkable. IMPRESSION: No acute pulmonary process. Dictated by: Beata Ye M.D. on 03/31/2019 at 21:24 Approved by: Beata Ye M.D. on 03/31/2019 at 21:24
[2019-03-31] MEDS: KETOROLAC 60 MG/2 ML VIAL 15 MG IV (21:14)
[2019-03-31] MEDS: SODIUM CHLORIDE 0.9% 1,000 ML 1000 ML IV ×2 (21:14→23:06)
[2019-03-31] MEDS: ONDANSETRON 4 MG/2 ML INJ IV (21:14)
[2019-03-31 21:16] LABS: Add Manual Diff / Slide Review NO; Basophils Absolute Auto 0 /uL (0-100); Basophils Percent Auto 0.3 % (0-2); Eosinophils Absolute Auto 0 /uL (0-450); Eosinophils Percent Auto 0.3 % (2-4); Hematocrit 46.2 % (36-46); Hemoglobin 15.5 g/dL (12.0-16.0); Lymphocytes Absolute Auto 600 /uL (1100-4500); Lymphocytes Percent Auto 13.6 % (25-40); Mean Corpuscular HGB Conc 33.5 % (30-36); Mean Corpuscular Hemoglobin 29.6 PG (26-34); Mean Corpuscular Volume 88.5 fL (80-100); Monocytes Absolute Auto 0 /uL (0-900); Neutrophils Absolute Auto 3700 /uL (1500-7000); Neutrophils Percent Auto 84.8 % (50-75); Platelet Count 276 X10^3/uL (150-400); Red Blood Cell Count 5.22 X10^6/uL (4.0-5.2); Red Cell Distribution Width 14.2 % (11.6-14.8); White Blood Cell Count 4.3 X10^3/uL (4.5-11.0)
[2019-03-31 21:29] LABS: Alanine Aminotransferase 25 IU/L (9-52); Albumin 4.7 g/dL (3.5-5.0); Albumin Globulin Ratio 1.2 (1.0-2.8); Alkaline Phosphatase 120 U/L (38-126); Aspartate Aminotransferase 37 IU/L (14-36); BUN Creatinine Ratio 16.4 (6-22); Bilirubin Total 0.7 mg/dL (0.2-1.3); Blood Urea Nitrogen 18 mg/dL (7-17); Calcium 9.6 mg/dL (8.4-10.2); Carbon Dioxide 22 mmol/L (22-32); Chloride 103 mmol/L (98-107); Estimated Glomerular Filt Rate 48.4 mL/min (>60); Globulin 3.9 g/dL (1.7-4.1); Glucose 122 mg/dL (80-110); HEMOLYSIS < 15 (0-50); Potassium 3.3 mmol/L (3.4-5.1); Sodium 139 mmol/L (137-145); Total Protein 8.6 g/dL (6.3-8.2)
[2019-03-31 21:35] LABS: Lactate (Lactic Acid) 4.1 mmol/L (0.7-2.1)
[2019-03-31 21:46] LABS: Procalcitonin 0.27 ng/mL (<0.5)
[2019-03-31 21:51] VITALS: BP 114/56; PULSE 83; RESP 18; O2SAT 97
[2019-03-31 23:00] VITALS: BP 102/49; PULSE 81; RESP 16; O2SAT 95
[2019-03-31] MEDS: CEFTRIAXONE 1 GM/50 ML FROZ.PIGGY IV (23:05)
[2019-03-31 23:20] LABS: Reflexed Lactate in 2 Hours Y
[2019-03-31 23:51] LABS: Lactate 2HR (Lactic Acid Rflx) 2.4 mmol/L (0.7-2.1)
[2019-04-01] VITALS (12 sets, daily range): BP systolic 72–147; BP diastolic 43–69; PULSE 82–108; RESP 16–18; TEMP 36.7–38.1; O2SAT 94–100; BMI 21.9
--- NOTE | 2019-04-01 01:06 | DI.RAD.S_ITS ---
PROCEDURE: XR ABDOMEN MIN 2V INDICATIONS: vomiting TECHNIQUE: 2 views of the abdomen were acquired. COMPARISON: [facility], CR, XR CHEST 1V, 03/31/2019, 21:02. FINDINGS: Surgical changes and devices: None. Bowel: No pneumoperitoneum. The bowel gas pattern is normal. Soft tissues: No masses; visualized solid organ contours appear normal in size. No suspicious abdominal calcifications. Bones: No suspicious bony abnormalities. Mild levoconvex scoliotic curvature is noted. Age-appropriate bony degenerative changes are seen. IMPRESSION: A nonobstructive bowel gas pattern is seen. As clinically appropriate, please consider a repeat plain film study or a dedicated CT of the abdomen and pelvis, if the patient's symptoms persist or worsen. Dictated by: Faisal Del Rio M.D. on 04/01/2019 at 7:42 Approved by: Faisal Del Rio M.D. on 04/01/2019 at 7:43
--- NOTE | 2019-04-01 02:03 | PM.HP.1 ---
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 No history of heart disease. Patient is known to have had a colonoscopy on 11/29/2018 with no significant polyps, mass lesions, or inflammatory features identified. Patient presented to the ED on 03/31/2019 out of concern for chills, nausea, vomiting, and diarrhea. Reports sudden onset of chills earlier in the day which was followed by abrupt episodes of vomiting (12+ times) in for episodes of non-bloody diarrhea. Today symptoms were accompanied by malaise and profound generalized weakness. Reports feeling dehydrated and being unable to tolerate oral hydration. No reported fever. Reports travel to [place] and [place] over the past 3 weeks, returned on 03/29. Reports being in an airplane for over 20 hours. Prior to patient's trip she was having trouble with intractable nausea and vomiting in the month of February. At least since 02/14/2019. During that month she was treated for a UTI, on 02/08/2019 w/ a 10 day course of ciprofloxacin 500 mg BID and on 02/26/2019 w/ a 7 day course of Bactrim. Patient does not have a history of recurrent UTIs. Urine culture on 02/26/2019 grew Klebsiella pneumonia with resistance to ampicillin. Reports additional symptoms of suprapubic tenderness / pressure (since Tuesday), bilateral lower back pain, and a rash. During the month of February patient has had episodes of dizziness with intractable nausea and vomiting. On 03/05 was seen in the ED and treated with IV fluids. Patient reports experiencing significant fatigue and shortness of breath with exertion for the past 2-3 weeks, believes this to be present prior to her trip. Denies URI symptoms, but on occasion had a cough. No prior known history of Clostridium difficile, however does report that her daughter (who 1 year ago) had Clostridium difficile 1 year ago. No prior known history of cardiac disease or blood clots. Prior to her trip patient has been having trouble with intractable nausea and vomiting. This has been going on since at least 02/14/2019. At that time she was seen by her PCP. Also, on 03/05/2019 patient was seen in the ED for similar concerns. She was treated with IV hydration and discharged home. Patient has underlying history of Parkinson's disease with tremor, impaired balance, and shuffling gait at baseline. She was started on carbidopa 10 mg - levodopa 100 mg, thrice daily, in September of 2018 by her PCP. Patient has decreased the dose to 1 tablet daily in the past several weeks as she thought that this medication may be causing her symptoms. Presentation to the ED patient was hypotensive and tachycardic. She complained of lower back pain and was treated with an IV dose of Toradol. Initial labs revealed hypokalemia (K 3.3), lactic acidosis (lactate 4.1), and abnormal thyroid function test (TSH 11.4). Chest x-ray was unremarkable abdominal x-ray, which is pending at this time, was reported to be non-obstructive. She was treated with IV fluids and given Rocephin out of concern for bacteremia. Blood Cx, collected. No vomiting or diarrhea since presentation to the ED. ED Presentation & Work-Up VS, 03/31 @ 2046. T 97.4 BP 99/58 HR 107 RR 19 SpO2 97% on room air GCS 15. On initial presentation complained of lower back pain 09/13. Labs, 03/31/19 @ 2018 WBC 4.3 HGB 15.5 PLT 276 NA 139 K 3.3 Cl 103 CA 9.6 GLU 122 CO2 22 BUN 18 CR 1.1 Lactate 4.1 PCT 0.27 AST 37 ALT 25 Alk Phos 120 T.Bili 0.7 TSH 11.4 FT4 1.6 CXR no acute cardiopulmonary process XR abdomen, final read pending, reported to be nonobstructive In ED was treated with Toradol 15 mg IV (2113), 1L NS bolus (2113), Zofran 4 mg IV, Ceftriaxone 1 gm IV, Patient History Medical History Chronic constipation (Chronic) Hypothyroidism due to Levar's thyroiditis (08/25/15) Parkinsonism (Chronic) Postmenopausal (Chronic) Family & Social History Safety & Behavioral: Feels Safe in Current Yes Environment Tobacco & Substance use: Smoking Status Never smoker alcohol intake current alcohol intake frequency 0-2 drinks per day Substance Use Type does not use Meds Home Medications and Allergies Home Medications Medication Instructions Recorded Confirmed Type Lumigan 1 drp OPHTHALMIC (EYE) DIRECTED 08/29/17 04/01/19 History #0 Restasis 1 drp OPHTH DIRECTED #0 08/29/17 04/01/19 History [simply sleep] 0.5 tab PO DAILY #0 08/29/17 03/07/19 History ascorbic acid (vitamin C) 500 mg PO DAILY #0 08/29/17 04/01/19 History cyanocobalamin (vitamin B-12) 1,000 mcg IM X1 #0 08/29/17 04/01/19 History ferrous gluconate 240 mg PO QDAY #0 08/29/17 04/01/19 History metronidazole 0.75 % lotion 0.75 % TOPICAL QDAY #59 ml 11/02/18 04/01/19 Rx sulfamethoxazole 800 1 tab PO BID #14 tab 02/26/19 03/07/19 Rx mg-trimethoprim 160 mg tablet aspirin 81 mg PO DAILY 03/05/19 04/01/19 History calcium carbonate 1 tab PO TID 03/05/19 04/01/19 History cholecalciferol (vitamin D3) 800 unit PO DAILY 03/05/19 04/01/19 History [Vitamin D3] levothyroxine [Synthroid] 75 mcg PO DAILY 03/05/19 04/01/19 History meclizine 25 mg PO PRN PRN 03/05/19 04/01/19 History ondansetron 4 mg PO Q8H PRN #10 tab 03/05/19 04/01/19 Rx carbidopa-levodopa [Sinemet] 1 tab PO DAILY 04/01/19 04/01/19 History Allergies Allergy/AdvReac Type Severity Reaction Status Date / Time lactase [From DAIRY AID] Allergy Intermediate Verified 03/07/19 14:04 iodine [IODINE] Allergy Mild HIVES Verified 03/07/19 14:04 alendronate sodium AdvReac Mild Vomiting Verified 03/07/19 14:04 Review of Systems Review of Systems ROS Unobtainable: All systems reviewed & are unremarkable except as noted in HPI and below Exam Vital Signs (past 8 hours): - 03/31/19 20:47 03/31/19 21:51 03/31/19 23:00 Temperature 97.4 F L Pulse Rate 107 H 83 81 Pulse Rate [Orthostatic Lying] Pulse Rate [Orthostatic Sitting] Pulse Rate [Orthostatic Standing] Respiratory Rate 19 18 16 Blood Pressure 99/58 L Blood Pressure [Left Arm] 114/56 L 102/49 L Blood Pressure [Orthostatic Lying] Blood Pressure [Orthostatic Sitting] Blood Pressure [Orthostatic Standing] Pulse Oximetry 97 97 95 04/01/19 00:03 04/01/19 01:11 04/01/19 01:45 Temperature 98.9 F Pulse Rate 83 86 Pulse Rate [Orthostatic Lying] 83 Pulse Rate [Orthostatic Sitting] 101 H Pulse Rate [Orthostatic Standing] 104 H Respiratory Rate 16 16 Blood Pressure Blood Pressure [Left Arm] 91/47 L 99/44 L Blood Pressure [Orthostatic Lying] 92/43 L Blood Pressure [Orthostatic Sitting] 97/43 L Blood Pressure [Orthostatic Standing] 77/48 L Pulse Oximetry 95 95 Oxygen Delivery Method Room Air Narrative Exam Narrative: Constitutional: NAD, ill appearing Chills present, no diaphoresis, no chest pain Neurologic: AOx3, no focal neurological deficits Head: NC, AT Eyes: Pupils equal and reactive, gaze conjugate, extraocular movements intact Ears: external ears normal, no otorrhea Nose: external nose normal, no rhinorrhea or epistaxis Throat: dry MM, oropharynx w/o exudate Neck: no masses, lymphadenopathy, or JVD Chest / Respiratory: equal chest rise, unlabored respiratory effort, no tachypnea or dyspnea at rest, CTA, diminished bases Heart / CV: S1S2, no murmur Abdomen / GI: round, NT, ND, + BS, no organomegaly : Suprapubic distention and tenderness, L- CVA tenderness Peripheral / Vascular: warm to touch, DP and PT pulses palpable, no edema Musc: full ROM of upper and lower extremities, adequate muscle tone and bulk Skin: no ecchymosis or suspicious lesions / ulcers no rash noted on torso or extremities Objective Labs Result Diagrams: 03/31/19 20:48 03/31/19 20:48 Labs: Laboratory Results - last 24 hr 03/31/19 03/31/19 03/31/19 20:48 20:48 20:48 WBC 4.3 L RBC 5.22 H Hgb 15.5 Hct 46.2 H MCV 88.5 MCH 29.6 MCHC 33.5 RDW 14.2 Plt Count 276 Neut % (Auto) 84.8 H Lymph % (Auto) 13.6 L Hemphill % (Auto) 1.0 L Eos % (Auto) 0.3 L Baso % (Auto) 0.3 Neut # (Auto) 3700 Lymph # (Auto) 600 L Hemphill # (Auto) 0 Eos # (Auto) 0 Baso # (Auto) 0 Sodium 139 Potassium 3.3 L Chloride 103 Carbon Dioxide 22 BUN 18 H Creatinine 1.10 H Estimated GFR 48.4 L BUN/Creatinine Ratio 16.4 Glucose 122 H Lactate Calcium 9.6 Total Bilirubin 0.7 AST 37 H ALT 25 Alkaline Phosphatase 120 Total Protein 8.6 H Albumin 4.7 Globulin 3.9 Albumin/Globulin Ratio 1.2 Procalcitonin 0.27 TSH Free T4 03/31/19 03/31/19 03/31/19 20:48 21:05 23:30 WBC RBC Hgb Hct MCV MCH MCHC RDW Plt Count Neut % (Auto) Lymph % (Auto) Hemphill % (Auto) Eos % (Auto) Baso % (Auto) Neut # (Auto) Lymph # (Auto) Hemphill # (Auto) Eos # (Auto) Baso # (Auto) Sodium Potassium Chloride Carbon Dioxide BUN Creatinine Estimated GFR BUN/Creatinine Ratio Glucose Lactate 4.1 H* 2.4 H Calcium Total Bilirubin AST ALT Alkaline Phosphatase Total Protein Albumin Globulin Albumin/Globulin Ratio Procalcitonin TSH 11.40 H Free T4 1.60 Assessment & Plan Assessment & Plan narrative: Patient is being admitted under observation status for orthostasis, dehydration, and intractable nausea and vomiting. Orthostatic hypotension, acute, present on admission, active - Tele monitoring - Orthostatic VS on admission and QShift x4 - Continue hydrating At present time will need to take priority to investigate non-neurogenic / autonomic causes of orthostatic hypotension, such as acute infection, dehydration, medication changes or cardiac pump failure. Given that patient has underlying Parkinson's disease she is at a significant risk for neurogenic orthostatic hypotension associated with inadequate release of norepinephrine and baroreflex failure. This is something that increases with PD duration, disease severity, H and levodopa usage. Consider autonomic testing and plasma norepinephrine level to confirm diagnosis Bacteremia, concern infectious, present on admission, active S/S: orthostasis, hypotension, tachycardia, chills, and elevated lactate RF: recent treatment of a recurrent UTI w/ urine cx + Klebsiella pneumoniae with MDR to ampicillin, has been on 2 different antibiotics in the past 30-60 days, recent out of the country travel to [place] and [place]. - Mild sofa 1 and qsofa 1 scores, No overt evidence of sepsis - Blood cultures pending - CXR negative - Obtain urine cx, GI pathogen panel, CRP, and respiratory viral panel - In the ED received 1 mg of ceftriaxone. Will change patient to meropenem 1 mg every 8 hours due to concern for resistance, complicated UTI, or intra-abdominal infection. Will de-escalate antimicrobial therapy, pending UA and blood culture results. Lactic acidosis ( lactate 4.1), present on admission, active - Lactate 4.1 -> 2.4 - Improving with IV hydration, trend level until normal Exertional dyspnea, acute, present on admission, active - obtain echocardiogram - Check trop - EKG Intractable nausea, vomiting, & diarrhea, acute, present on admission, active - IVF - GI pathogen panel - O&P, Fecal leukocytes - ordered by ED - Anti-emetics, zofran Q6H prn Hypokalemia, K 3.3, acute, present on admission, active - Replete w/ 40 mEq KCl rider - Check Mg, will add to labs obtained from ED Mag 2.0 Acquired hypothyroidism (h/o Levar's thyroiditis) chronic condition, present on admission, inadequately controlled - TSH 11.4 FT4 1.6 -resume patient's [employer] regimen of levothyroxine Given acute non-thyroid illness, will hold an adjustment in levothyroxine does Parkinson's, chronic condition, present on admission, active -resume PT regimen of carbidopa levodopa at 1 tablet daily Code status discussed with patient. Wishes to be full code. Designates spouse as surrogate decision maker. Home medications reviewed and reconciled accordingly. VTE prophylaxis with SCDs and heparin.
[2019-04-01] MEDS: POTASSIUM CHLORIDE 40 MEQ in SODIUM CHLORIDE 0.9% 500 ML 130 ML IV (03:25)
--- NOTE | 2019-04-01 04:33 | DI.ECHO.S_ITS ---
[facility] +---------+ [facility] +---------+ : : [address] : : : : [id number] : : : : Phone: [phone] Echocardiogram Report + + :Name: GARY WHIPPLE Study Date: 04/01/2019 Height: 62 in : :[facility] Weight: 120 lb: : Gender: Female BSA: 1.5 m2 : :: 1945 Age: 73 yrs BP: 72/43 mmHg: :Reason For Study: DYSPNEA : : Performed By: Sandro Zelaya : :Referring: LIYA MCCARTHY : + + Interpretation Summary Normal sinus rhythm. Normal LV size, wall thickness, wall motion and left ventricular systolic function. Ejection fraction is 60-65%. Normal chamber sizes. No significant valvular abnormalities. No prior study available for comparison. Procedure: A two-dimensional transthoracic echocardiogram with color flow and Doppler was performed. The study quality was technically adequate. There is no prior echocardiogram noted for this patient. The patient was in normal sinus rhythm during the exam. Left Ventricle: The left ventricle is normal in size. There is normal left ventricular wall thickness. The ejection fraction is estimated to be 60-65%. There are no focal wall motion abnormalities. Right Ventricle: The right ventricle is normal in size and function. Atria: Both atria are normal in size. The interatrial septum is intact with no evidence for an atrial septal defect. Mitral Valve: The mitral valve is normal in structure and function. There is trace mitral regurgitation. Aortic Valve: The aortic valve is trileaflet. The aortic valve opens well. There is trace aortic regurgitation. Tricuspid Valve: The tricuspid valve is normal in structure and function. There is trace tricuspid regurgitation. The right ventricular systolic pressure is estimated to be at least 21 mmHg based on an estimated right atrial pressure of 3 mm Hg. Pulmonic Valve: The pulmonic valve is normal in structure and function. There is trace pulmonic regurgitation. Great Vessels: The aortic root is normal size. The dimensions of the ascending aorta are normal. The pulmonary artery is normal size. The IVC is of normal diameter and collapses greater than 50% with a sniff. This suggests a low right atrial pressure of 3 mm Hg. Pericardium/ Pleura There is no pericardial effusion. There is no pleural effusion. MMode/2D Measurements & Calculations LVIDd: 3.8 cm LVOT diam: 2.0 cm LVIDs: 2.4 cm Ao root diam: 3.1 cm FS: 36.8 % Aortic Jxn: 2.5 cm EPSS: 0.15 cm asc Aorta Diam: 3.2 cm IVSd: 0.70 cm Ao Arch Diam (Prox Trans): 2.4 cm LVPWd: 0.68 cm LV miller. diameter/BSA (cm/m^2): 2.5 LV sys. diameter/BSA (cm/m^2): 1.5 LA dimension: 2.9 cm RA long axis: 4.5 cm LA A2 area: 14.2 cm2 RA area: 13.7 cm2 LA A4 area: 14.0 cm2 RA vol: 35.5 ml LA length (vol): 4.7 cm RA : 23.1 ml/m2 LA vol: 36.2 ml IVC diam: 1.2 cm LA vol index: 23.5 ml/m2 RVD1 (basal): 3.6 cm RVD2 (mid): 3.4 cm Doppler Measurements & Calculations Ao V2 max: 132.5 cm/sec LVOT Max Deshaun: 101.1 cm/sec Ao V2 mean: 103.0 cm/sec LV V1 max P.1 mmHg Ao max P.0 mmHg LV V1 VTI: 20.7 cm Ao mean P.4 mmHg PHIL(I,D): 2.4 cm2 Ao V2 VTI: 26.3 cm PHIL(V,D): 2.3 cm2 sev ratio: 0.79 PHIL indexed to BSA (cm^2/m^2): 1.5 MV E max deshaun: 68.0 cm/sec TR max deshaun: 210.6 cm/sec MV A max deshaun: 74.2 cm/sec TR max P.7 mmHg MV E/A: 0.92 PA V2 max: 80.7 cm/sec Med Peak E' Deshaun: 7.6 cm/sec PA V2 mean: 57.1 cm/sec E/E' med: 8.9 PA mean P.4 mmHg Lat Peak E' Deshaun: 9.7 cm/sec PA pr(Accel): 36.6 mmHg E/E' lat: 7.0 PA Accel Time: 0.10 sec E/e' average: 8.0 MV dec time: 0.23 sec SV(LVOT): 62.5 ml Electronically signed by: Chelsey Davison M.D. on Reading Physician:04/01/2019 04:35 PM
--- NOTE | 2019-04-01 04:54 | PC.NURSE ---
Bladder scan amount was 197mL.
[2019-04-01] MEDS: ACETAMINOPHEN 325 MG TABLET 975 MG PO (06:38)
[2019-04-01] MEDS: MEROPENEM 1 GM in SODIUM CHLORIDE 0.9% 100 ML 200 ML IV (06:39)
[2019-04-01 06:47] LABS: Appearance Urine UA CLEAR; Bilirubin Urine UA NEGATIVE (NEGATIVE); Color Urine UA YELLOW; Glucose Urine UA NEGATIVE (Negative); Ketones Urine UA TRACE (NEGATIVE); Leukocyte Esterase Urine UA TRACE (NEGATIVE); Nitrite Urine UA NEGATIVE (Negative); Occult Blood Urine UA NEGATIVE (Negative); Protein Urine UA TRACE (Negative); Specific Gravity Urine UA 1.015 (1.000-1.035); Urobilinogen Urine UA 0.2 E.U./dL (0.2)
[2019-04-01 06:49] LABS: pH Urine UA 5.5 (4.5-8.0)
[2019-04-01 06:51] LABS: Add Manual Diff / Slide Review NO; Basophils Absolute Auto 0 /uL (0-100); Basophils Percent Auto 0.2 % (0-2); Eosinophils Absolute Auto 200 /uL (0-450); Eosinophils Percent Auto 1.9 % (2-4); Hematocrit 36.2 % (36-46); Lymphocytes Absolute Auto 200 /uL (1100-4500); Lymphocytes Percent Auto 1.4 % (25-40); Mean Corpuscular HGB Conc 33.1 % (30-36); Mean Corpuscular Hemoglobin 29.7 PG (26-34); Mean Corpuscular Volume 89.8 fL (80-100); Monocytes Absolute Auto 600 /uL (0-900); Monocytes Percent Auto 4.8 % (3-14); Neutrophils Absolute Auto 11800 /uL (1500-7000); Neutrophils Percent Auto 91.7 % (50-75); Platelet Count 219 X10^3/uL (150-400); Red Blood Cell Count 4.03 X10^6/uL (4.0-5.2); Red Cell Distribution Width 14.3 % (11.6-14.8)
[2019-04-01 06:52] LABS: White Blood Cell Count 12.9 X10^3/uL (4.5-11.0)
[2019-04-01 06:58] LABS: Bacteria Urine Few (2-10); Mucus Urine 2+ (Negative); RBC Urine 0-1/HPF (0-5/HPF); Squamous Epithelial Cell Urine 1-5 /HPF (0-5/HPF); WBC Urine 1-5/HPF (0-5/HPF)
[2019-04-01 06:59] LABS: Culture Indicated Urine Specimen Cultured
[2019-04-01 07:00] LABS: Lactate (Lactic Acid) 1.8 mmol/L (0.7-2.1)
[2019-04-01 07:01] LABS: Alanine Aminotransferase 21 IU/L (9-52); Albumin 2.9 g/dL (3.5-5.0); Alkaline Phosphatase 60 U/L (38-126); Aspartate Aminotransferase 26 IU/L (14-36); BUN Creatinine Ratio 18.9 (6-22); Bilirubin Total 0.4 mg/dL (0.2-1.3); Blood Urea Nitrogen 17 mg/dL (7-17); Calcium 7.9 mg/dL (8.4-10.2); Carbon Dioxide 21 mmol/L (22-32); Chloride 111 mmol/L (98-107); Creatine Kinase 58 U/L (30-135); Estimated Glomerular Filt Rate > 60.0 mL/min (>60); Glucose 110 mg/dL (80-110); HEMOLYSIS 16 (0-50); Magnesium 1.7 mg/dL (1.6-2.3); Potassium 4.8 mmol/L (3.4-5.1); Sodium 137 mmol/L (137-145); Total Protein 5.9 g/dL (6.3-8.2)
[2019-04-01 07:07] LABS: C-Reactive Protein Quant < 0.5 mg/dL (<1.0)
[2019-04-01 07:12] LABS: Troponin I < 0.012 ng/mL (0.01-0.034)
[2019-04-01] MEDS: LEVOTHYROXINE 75 MCG TABLET PO (07:58)
[2019-04-01 08:27] LABS: Adenovirus Not Detected (Not Detect); Bordetella pertussis Not Detected (Not Detect); Chlamydophila pneumoniae Not Detected (Not Detect); Coronavirus 229E Not Detected (Not Detect); Coronavirus HKU1 Not Detected (Not Detect); Coronavirus NL 63 Not Detected (Not Detect); Coronavirus OC43 Not Detected (Not Detect); Human Metapneumovirus Not Detected (Not Detect); Human Rhinovirus/Enterovirus Not Detected (Not Detect); Influenza A Not Detected (Not Detect); Influenza B Not Detected (Not Detect); Mycoplasma pneumoniae Not Detected (Not Detect); Parainfluenza Virus 1 Not Detected (Not Detect); Parainfluenza Virus 2 Not Detected (Not Detect); Parainfluenza Virus 3 Not Detected (Not Detect); Parainfluenza Virus 4 Not Detected (Not Detect); Respiratory Syncytial Virus Not Detected (Not Detect)
--- NOTE | 2019-04-01 08:54 | CM.DANOTE ---
DCP: Case received, EMR reviewed and checked on patient. Called patient's , Esa, in order to retrieve baseline health and activity information on patient, for patient is sleeping and on isolation precautions. Introduced self and role via phone. DCP assessment/template completed with information currently available. Patient is a 73 year old female who admitted early this morning to the care of the hospitalist team. PCP: Dr. Phillip. Payer: confirmed: Medicare/BCBS Out of [facility]. Patient came the the hospital via family vehicle secondary to chills, weakness. Patient and her had just recently come back from [facility]. Patient holds diagnosis of orthostasis, dehydration, and possible sepsis. Checked on patient from [facility], she was sleeping, and is on isolation precautions. Was able to call , Esa, in order to obtain further information. Patient does have history of Parkinsons as well. Patient resides here in [place] with . , Esa, stated that she is independent, does not use any DME supplies, and drives. stated that when they were on their trip, she was walking around with no problems. stated that he will be here later today to see patient. P:DCP will follow closely, and will see how she progresses here in the hospital. May want to also consult with P.T, since patient has history of Parkinsons. Ruth Nice RN/District Operations Manager
[2019-04-01] MEDS: CYANOCOBALAMIN 1,000 MCG/ML VIAL 1000 MCG IM (09:44)
[2019-04-01] MEDS: CHOLECALCIFEROL (VITAMIN D3) 400 UNIT TABLET 800 UNIT PO (09:44)
[2019-04-01] MEDS: ASPIRIN EC 81 MG TABLET PO (09:44)
[2019-04-01] MEDS: HEPARIN 5,000 UNIT/ML VIAL 5000 UNIT SUBCUT ×2 (09:46→20:21)
[2019-04-01] MEDS: SODIUM CHLORIDE 0.9% 1,000 ML 125 ML IV (11:57)
--- NOTE | 2019-04-01 13:05 | PC.NURSE ---
AM NOTE - pt awakens easily, does have some resting hand tremors, states feels very cold , tempt 100.5 this am, denies nausea, hr 96, states some mid abd discomfort has been ongoing past few days, later assisted to bsc, orthostaic bp at sitting 98/68, when stood, some dizziness and bp 72/42, had pt use bsc to void, ret bed, pt is ayden po fluids, spoke with Dr. Blanc and new order rec'd, continue ns at 125ml/hr.
--- NOTE | 2019-04-01 16:19 | P.PN_ITS ---
Subjective Subjective Date Patient Seen: 04/01/19 Exam Vital Signs (past 8 hours): - 04/01/19 15:30 04/01/19 20:09 Temperature 99.7 F H 99.4 F Pulse Rate 82 91 H Respiratory Rate 18 18 Blood Pressure 99/47 L 84/54 L Pulse Oximetry 98 95 Oxygen Delivery Method Room Air Oxygen Flow Rate 0 Objective Labs Result Diagrams: 04/01/19 06:30 04/01/19 06:30 Labs: Laboratory Results - last 24 hr 03/31/19 03/31/19 03/31/19 20:48 20:48 20:48 WBC RBC Hgb Hct MCV MCH MCHC RDW Plt Count Neut % (Auto) Lymph % (Auto) [place] % (Auto) Eos % (Auto) Baso % (Auto) Neut # (Auto) Lymph # (Auto) [place] # (Auto) Eos # (Auto) Baso # (Auto) Sodium Potassium Chloride Carbon Dioxide BUN Creatinine Estimated GFR BUN/Creatinine Ratio Glucose Lactate Calcium Magnesium 2.0 Total Bilirubin AST ALT Alkaline Phosphatase Total Creatine Kinase CK-MB (CK-2) CK-MB (CK-2) Rel Index Troponin I C-Reactive Protein < 0.5 Total Protein Albumin Globulin Albumin/Globulin Ratio TSH 11.40 H Urine Color Urine Appearance Urine pH Ur Specific [place] Urine Protein Urine Glucose (UA) Urine Ketones Urine Occult Blood Urine Nitrate Urine Bilirubin Urine Urobilinogen Ur Leukocyte Esterase Urine RBC Urine WBC Ur Squamous Epith Cells Urine Bacteria Urine Mucus Ur Culture Indicated? Stl C. cayetanensis PCR Stool Rotavirus (PCR) Stool Adenovirus (PCR) Stool Astrovirus (PCR) Stool Cryptosporidium PCR Stl E.coli Shiga Tox PCR St Sh/Enteroin Ecoli PCR Stool E coli O157 PCR Stl Enterotoxigenic E PCR Stool EPEC (PCR) Stl E. histolytica PCR Stool Giardia Lamblia PCR Stool Sapovirus (PCR) Stl P. shigelloides PCR St Y.enterocolitica PCR Stool Vibrio (PCR) Stl Vibrio cholerae PCR Stl Enteroaggr Ecoli PCR Stl Norovirus GI/GII PCR Chlamy pneumoniae PCR Adenovirus (PCR) B.parapertussis DNA PCR Campylobacter (PCR) C. difficile Tox (PCR) Coronavirus OC43 (PCR) Coronavirus HKU1 (PCR) Coronavirus 229E (PCR) Coronavirus NL63 (PCR) Human Metapneumovir PCR Influenza Type A (PCR) Influenza Type B (PCR) M. pneumoniae (PCR) Parainfluenza 1 (PCR) Parainfluenza 2 (PCR) Parainfluenza 3 (PCR) Parainfluenza 4 (PCR) RSV (PCR) Entero/Rhino (PCR) Salmonella (PCR) 03/31/19 04/01/19 04/01/19 23:30 06:30 06:30 WBC 12.9 H D RBC 4.03 Hgb 12.0 Hct 36.2 MCV 89.8 MCH 29.7 MCHC 33.1 RDW 14.3 Plt Count 219 Neut % (Auto) 91.7 H Lymph % (Auto) 1.4 L [place] % (Auto) 4.8 Eos % (Auto) 1.9 L Baso % (Auto) 0.2 Neut # (Auto) 84588 H Lymph # (Auto) 200 L [place] # (Auto) 600 Eos # (Auto) 200 Baso # (Auto) 0 Sodium 137 Potassium 4.8 D Chloride 111 H Carbon Dioxide 21 L BUN 17 Creatinine 0.90 Estimated GFR > 60.0 BUN/Creatinine Ratio 18.9 Glucose 110 Lactate 2.4 H Calcium 7.9 L Magnesium 1.7 Total Bilirubin 0.4 AST 26 ALT 21 Alkaline Phosphatase 60 D Total Creatine Kinase 58 CK-MB (CK-2) TNP CK-MB (CK-2) Rel Index TNP Troponin I < 0.012 C-Reactive Protein Total Protein 5.9 L Albumin 2.9 L Globulin 3.0 Albumin/Globulin Ratio 1.0 TSH Urine Color Urine Appearance Urine pH Ur Specific [place] Urine Protein Urine Glucose (UA) Urine Ketones Urine Occult Blood Urine Nitrate Urine Bilirubin Urine Urobilinogen Ur Leukocyte Esterase Urine RBC Urine WBC Ur Squamous Epith Cells Urine Bacteria Urine Mucus Ur Culture Indicated? Stl C. cayetanensis PCR Stool Rotavirus (PCR) Stool Adenovirus (PCR) Stool Astrovirus (PCR) Stool Cryptosporidium PCR Stl E.coli Shiga Tox PCR St Sh/Enteroin Ecoli PCR Stool E coli O157 PCR Stl Enterotoxigenic E PCR Stool EPEC (PCR) Stl E. histolytica PCR Stool Giardia [place]lia PCR Stool Sapovirus (PCR) Stl P. shigelloides PCR St Y.enterocolitica PCR Stool Vibrio (PCR) Stl Vibrio cholerae PCR Stl Enteroaggr Ecoli PCR Stl Norovirus GI/GII PCR Chlamy pneumoniae PCR Adenovirus (PCR) B.parapertussis DNA PCR Campylobacter (PCR) C. difficile Tox (PCR) Coronavirus OC43 (PCR) Coronavirus HKU1 (PCR) Coronavirus 229E (PCR) Coronavirus NL63 (PCR) Human Metapneumovir PCR Influenza Type A (PCR) Influenza Type B (PCR) M. pneumoniae (PCR) Parainfluenza 1 (PCR) Parainfluenza 2 (PCR) Parainfluenza 3 (PCR) Parainfluenza 4 (PCR) RSV (PCR) Entero/Rhino (PCR) Salmonella (PCR) 04/01/19 04/01/19 04/01/19 06:30 06:40 06:45 WBC RBC Hgb Hct MCV MCH MCHC RDW Plt Count Neut % (Auto) Lymph % (Auto) [place] % (Auto) Eos % (Auto) Baso % (Auto) Neut # (Auto) Lymph # (Auto) [place] # (Auto) Eos # (Auto) Baso # (Auto) Sodium Potassium Chloride Carbon Dioxide BUN Creatinine Estimated GFR BUN/Creatinine Ratio Glucose Lactate 1.8 Calcium Magnesium Total Bilirubin AST ALT Alkaline Phosphatase Total Creatine Kinase CK-MB (CK-2) CK-MB (CK-2) Rel Index Troponin I C-Reactive Protein Total Protein Albumin Globulin Albumin/Globulin Ratio TSH Urine Color Yellow Urine Appearance Clear Urine pH 5.5 Ur Specific [place] 1.015 Urine Protein Trace H Urine Glucose (UA) Negative Urine Ketones Trace H Urine Occult Blood Negative Urine Nitrate Negative Urine Bilirubin Negative Urine Urobilinogen 0.2 Ur Leukocyte Esterase Trace H Urine RBC 0-1/hpf Urine WBC 1-5/hpf Ur Squamous Epith Cells 1-5 /hpf Urine Bacteria Few (2-10) H Urine Mucus 2+ H Ur Culture Indicated? Specimen cultured Stl C. cayetanensis PCR Stool Rotavirus (PCR) Stool Adenovirus (PCR) Stool Astrovirus (PCR) Stool Cryptosporidium PCR Stl E.coli Shiga Tox PCR St Sh/Enteroin Ecoli PCR Stool E coli O157 PCR Stl Enterotoxigenic E PCR Stool EPEC (PCR) Stl E. histolytica PCR Stool Giardia Lamblia PCR Stool Sapovirus (PCR) Stl P. shigelloides PCR St Y.enterocolitica PCR Stool Vibrio (PCR) Stl Vibrio cholerae PCR Stl Enteroaggr Ecoli PCR Stl Norovirus GI/GII PCR Chlamy pneumoniae PCR Not detected Adenovirus (PCR) Not detected B.parapertussis DNA PCR Not detected Campylobacter (PCR) C. difficile Tox (PCR) Coronavirus OC43 (PCR) Not detected Coronavirus HKU1 (PCR) Not detected Coronavirus 229E (PCR) Not detected Coronavirus NL63 (PCR) Not detected Human Metapneumovir PCR Not detected Influenza Type A (PCR) Not detected Influenza Type B (PCR) Not detected M. pneumoniae (PCR) Not detected Parainfluenza 1 (PCR) Not detected Parainfluenza 2 (PCR) Not detected Parainfluenza 3 (PCR) Not detected Parainfluenza 4 (PCR) Not detected RSV (PCR) Not detected Entero/Rhino (PCR) Not detected Salmonella (PCR) 04/01/19 15:25 WBC RBC Hgb Hct MCV MCH MCHC RDW Plt Count Neut % (Auto) Lymph % (Auto) [place] % (Auto) Eos % (Auto) Baso % (Auto) Neut # (Auto) Lymph # (Auto) [place] # (Auto) Eos # (Auto) Baso # (Auto) Sodium Potassium Chloride Carbon Dioxide BUN Creatinine Estimated GFR BUN/Creatinine Ratio Glucose Lactate Calcium Magnesium Total Bilirubin AST ALT Alkaline Phosphatase Total Creatine Kinase CK-MB (CK-2) CK-MB (CK-2) Rel Index Troponin I C-Reactive Protein Total Protein Albumin Globulin Albumin/Globulin Ratio TSH Urine Color Urine Appearance Urine pH Ur Specific [place] Urine Protein Urine Glucose (UA) Urine Ketones Urine Occult Blood Urine Nitrate Urine Bilirubin Urine Urobilinogen Ur Leukocyte Esterase Urine RBC Urine WBC Ur Squamous Epith Cells Urine Bacteria Urine Mucus Ur Culture Indicated? Stl C. cayetanensis PCR Not detected Stool Rotavirus (PCR) Not detected Stool Adenovirus (PCR) Not detected Stool Astrovirus (PCR) Not detected Stool Cryptosporidium PCR Not detected Stl E.coli Shiga Tox PCR Detected H St Sh/Enteroin Ecoli PCR Not detected Stool E coli O157 PCR Not detected Stl Enterotoxigenic E PCR Not detected Stool EPEC (PCR) Not Reportable Stl E. histolytica PCR Not detected Stool Giardia [place]lia PCR Not detected Stool Sapovirus (PCR) Not detected Stl P. shigelloides PCR Not detected St Y.enterocolitica PCR Not detected Stool Vibrio (PCR) Not detected Stl Vibrio cholerae PCR Not detected Stl Enteroaggr Ecoli PCR Detected H Stl Norovirus GI/GII PCR Not detected Chlamy pneumoniae PCR Adenovirus (PCR) B.parapertussis DNA PCR Campylobacter (PCR) Not detected C. difficile Tox (PCR) Not detected Coronavirus OC43 (PCR) Coronavirus HKU1 (PCR) Coronavirus 229E (PCR) Coronavirus NL63 (PCR) Human Metapneumovir PCR Influenza Type A (PCR) Influenza Type B (PCR) M. pneumoniae (PCR) Parainfluenza 1 (PCR) Parainfluenza 2 (PCR) Parainfluenza 3 (PCR) Parainfluenza 4 (PCR) RSV (PCR) Entero/Rhino (PCR) Salmonella (PCR) Not detected Assessment & Plan Assessment & Plan narrative: Brief progress note: Patient seen and examined. The patient is hemodynamically stable. The patient continues to have intermittent nausea no longer with e mesis. Physical exam unchanged. Agree with admitting providers assessment and plan except GI stool PCR positive for shiga toxin producing E coli and discontinued IV antibiotics as this may propagate endotoxin release and worsen infectious diarrhea. Await urine cultures. Continue supportive care. Quality VTE Deep Vein Thrombosis/Pulmonary Embolism Present on Admission: No
[2019-04-01 16:57] LABS: Campylobacter Not Detected (Not Detect); Clostridium difficile toxin AB Not Detected (Not Detect); Enteroaggregative E.coli Detected (Not Detect); Plesiomonsa shigelloides Not Detected (Not Detect); Salmonella Not Detected (Not Detect); Vibrio Not Detected (Not Detect); Vibrio cholerae Not Detected (Not Detect); Yersinia enterocolitica Not Detected (Not Detect)
[2019-04-01 16:58] LABS: Adenovirus F 40/41 Not Detected (Not Detect); Astrovirus Not Detected (Not Detect); Cryptosporidium Not Detected (Not Detect); Cyclospora cayetanensis Not Detected (Not Detect); Entamoeba histolytica Not Detected (Not Detect); Enterotoxigenic E.coli It/st Not Detected (Not Detect); Giardia lamblia Not Detected (Not Detect); Norovirus GI/GII Not Detected (Not Detect); Rotavirus A Not Detected (Not Detect); Sapovirus Not Detected (Not Detect); Shigella/Enteroinvasive E.coli Not Detected (Not Detect)
[2019-04-01] MEDS: CARBIDOPA-LEVODOPA 10/100 TABLET 1 EACH PO (20:23)
[2019-04-02] VITALS (8 sets, daily range): BP systolic 100–131; BP diastolic 58–75; PULSE 69–82; RESP 16–18; TEMP 36.4–37.1; O2SAT 94–100
[2019-04-02] MEDS: SODIUM CHLORIDE 0.9% 1,000 ML 125 ML IV ×2 (04:28→13:29)
[2019-04-02] MEDS: LEVOTHYROXINE 75 MCG TABLET PO (05:54)
[2019-04-02 06:54] LABS: Hematocrit 35.7 % (36-46); Hemoglobin 12.1 g/dL (12.0-16.0); Mean Corpuscular HGB Conc 33.9 % (30-36); Mean Corpuscular Hemoglobin 30.2 PG (26-34); Mean Corpuscular Volume 89.1 fL (80-100); Platelet Count 222 X10^3/uL (150-400); Red Blood Cell Count 4.01 X10^6/uL (4.0-5.2); Red Cell Distribution Width 14.5 % (11.6-14.8); White Blood Cell Count 8.3 X10^3/uL (4.5-11.0)
[2019-04-02 07:01] LABS: Add Manual Diff / Slide Review YES
[2019-04-02 07:04] LABS: Alanine Aminotransferase 15 IU/L (9-52); Albumin 3.1 g/dL (3.5-5.0); Albumin Globulin Ratio 0.9 (1.0-2.8); Alkaline Phosphatase 77 U/L (38-126); Aspartate Aminotransferase 27 IU/L (14-36); Bilirubin Total 0.4 mg/dL (0.2-1.3); Blood Urea Nitrogen 12 mg/dL (7-17); Calcium 8.4 mg/dL (8.4-10.2); Carbon Dioxide 20 mmol/L (22-32); Chloride 108 mmol/L (98-107); Estimated Glomerular Filt Rate > 60.0 mL/min (>60); Globulin 3.3 g/dL (1.7-4.1); Glucose 80 mg/dL (80-110); HEMOLYSIS < 15 (0-50); Potassium 3.8 mmol/L (3.4-5.1); Sodium 134 mmol/L (137-145); Total Protein 6.4 g/dL (6.3-8.2)
[2019-04-02 07:23] LABS: Procalcitonin 6.68 ng/mL (<0.5)
[2019-04-02 07:37] LABS: Shiga-like toxin-prod E.coli Detected (Not Detect)
[2019-04-02 07:37] LABS: Dohle Bodies 1+; Neutrophils Absolute Manual 6391 /uL (3000-5900); Platelet Estimate Adequate on smear; Total Cells Counted 100; Toxic Vacuolation Present
[2019-04-02 08:03] LABS: Magnesium 1.8 mg/dL (1.6-2.3)
[2019-04-02] MEDS: ASPIRIN EC 81 MG TABLET PO (09:56)
[2019-04-02] MEDS: CHOLECALCIFEROL (VITAMIN D3) 400 UNIT TABLET 800 UNIT PO (09:56)
[2019-04-02] MEDS: HEPARIN 5,000 UNIT/ML VIAL 5000 UNIT SUBCUT ×2 (09:56→20:09)
--- NOTE | 2019-04-02 09:58 | PC.NURSE ---
Patient up to restroom for the second time this morning. Second bought of diarrhea. Patient denies N/V, chills, fever, SOB, lethargy, numbness or tingling in the extremities. Patient ambulates SBA. Lung sounds are clear on room air. Patient repositions independently in the bed. Patient does have tremors in the RUE. Normal for patient per patient. Dry intermittent cough noted, patient states this is new. Patient's IV in right AC d/c, leaking. Fluids temporarily stopped until new IV can be placed.
--- NOTE | 2019-04-02 15:47 | P.PN_ITS ---
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 The patient is resting in bed comfortably. She reports she feels significantly better. Her nausea and vomiting have completely resolved. She no longer feels lightheaded or dizzy with standing up or ambulation. Her orthostatic blood pressures are no longer positive. She is afebrile but continues to feel mildly cold. She endorses a pruritic rash that has been on and off for 1 month for which she is beginning to have mild pruritus but no signs of rash on exam. She is having loose stool. She is eager to advance diet which will start this ranjit jun. She has mild dry cough. She denies headache, shortness of breath, chest pain, abdominal pain, nausea, vomiting, dysuria, or constipation. She is voiding and eliminating without difficulty. She is up ambulating without assistance. She endorses mild generalized weakness. Exam Vital Signs (past 8 hours): - 04/02/19 12:00 04/02/19 15:49 04/02/19 17:18 Temperature 98.3 F 97.6 F Pulse Rate 78 79 Pulse Rate [Orthostatic Lying] 70 Pulse Rate [Orthostatic Sitting] 69 Pulse Rate [Orthostatic Standing] 77 Respiratory Rate 18 16 Blood Pressure 116/59 L 121/75 Blood Pressure [Orthostatic Lying] 108/66 Blood Pressure [Orthostatic Sitting] 131/74 Blood Pressure [Orthostatic Standing] 127/69 Pulse Oximetry 100 97 Oxygen Delivery Method Room Air Oxygen Flow Rate 0 Narrative Exam Narrative: General: Older female lying in bed and in no acute distress, appears younger than stated age, well-developed, well-nourished, appropriately interactive. HEENT: Normocephalic, atraumatic. External ears without defect. Pupils equal, round, and reactive to light. Artificial lens present in both eyes. Anicteric sclerae, moist conjunctivae, and no lid lag. Oropharynx free of erythema and cobble stoning with moist mucosa. Neck: Supple with full range of motion. No lymphadenopathy or thyromegaly. Cardiovascular: Regular rate and rhythm without murmurs, rubs, or gallops apprec iated. Pulmonary: Clear to auscultation bilaterally without crackles, wheezes, or rhonchi. Normal respiratory effort with no use of accessory muscles. Abdomen: Soft, bowel sounds present, nontender, nondistended. Suprapubic tenderness resolved. No hepatosplenomegaly or masses appreciated. Extremities: No clubbing, cyanosis, or edema. Skin: Normal temperature, turgor, and texture; no rash, ulcers, or subcutaneous nodules appreciated. Skin is dry. Neurological: Cranial nerves grossly intact. Mild parkinsonian tremor. Psychiatric: Normal mood and affect. Alert and oriented to person, place, and time. Objective Labs Result Diagrams: 04/02/19 06:32 04/02/19 06:32 Labs: Laboratory Results - last 24 hr 04/01/19 04/02/19 04/02/19 15:25 06:32 06:32 WBC 8.3 RBC 4.01 Hgb 12.1 Hct 35.7 L MCV 89.1 MCH 30.2 MCHC 33.9 RDW 14.5 Plt Count 222 Neut % (Auto) Not Reportable Lymph % (Auto) Not Reportable [place] % (Auto) Not Reportable Eos % (Auto) Not Reportable Baso % (Auto) Not Reportable Lymph # (Auto) Not Reportable [place] # (Auto) Not Reportable Baso # (Auto) Not Reportable Total Counted 100 Seg Neutrophils % 69.0 Band Neutrophils % 8.0 H Lymphocytes % (Manual) 5.0 L Monocytes % (Manual) 3.0 Eosinophils % (Manual) 15.0 H Neutrophils # (Manual) 6391 H Toxic Vacuolation Present H Dohle Bodies 1+ H Platelet Estimate Adequate on smear RBC Morphology See below Sodium Potassium Chloride Carbon Dioxide BUN Creatinine Estimated GFR BUN/Creatinine Ratio Glucose Calcium Magnesium Total Bilirubin AST ALT Alkaline Phosphatase Total Protein Albumin Globulin Albumin/Globulin Ratio Procalcitonin 6.68 H Stl E.coli Shiga Tox PCR Detected H 04/02/19 04/02/19 06:32 06:49 WBC RBC Hgb Hct MCV MCH MCHC RDW Plt Count Neut % (Auto) Lymph % (Auto) [place] % (Auto) Eos % (Auto) Baso % (Auto) Lymph # (Auto) [place] # (Auto) Baso # (Auto) Total Counted Seg Neutrophils % Band Neutrophils % Lymphocytes % (Manual) Monocytes % (Manual) Eosinophils % (Manual) Neutrophils # (Manual) Toxic Vacuolation Dohle Bodies Platelet Estimate RBC Morphology Sodium 134 L Potassium 3.8 Chloride 108 H Carbon Dioxide 20 L BUN 12 Creatinine 0.80 Estimated GFR > 60.0 BUN/Creatinine Ratio 15.0 Glucose 80 Calcium 8.4 Magnesium 1.8 Total Bilirubin 0.4 AST 27 ALT 15 Alkaline Phosphatase 77 Total Protein 6.4 Albumin 3.1 L Globulin 3.3 Albumin/Globulin Ratio 0.9 L Procalcitonin Stl E.coli Shiga Tox PCR Assessment & Plan Assessment & Plan narrative: Juan Ye is a 73-year-old female with a past medical history significant for Parkinson's disease (with tremor, impaired balance, shuffling gait at baseline), 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 1. Acute severe sepsis, present on admission. Resolved. -Patient presented with tachycardia, chills, elevated lactate, organ dysfunction hypotension with orthostasis and ELHAM with source infectious diarrhea. qSOFA score 1. -Early goal-directed therapy met including: IV fluid resuscitation and broad- spectrum antibiotics. Discontinued broad-spectrum antibiotics as below. -Initial lactic acid 4.1. Continue to trend lactic acid until under 2.0. 2. Shiga toxin producing E. coli infection, present on admission. Resolving. -Patient presented with nausea, vomiting, and diarrhea for several days since returning from [place]. -Abdominal film did not demonstrate any acute intra-abdominal process with normal bowel gas pattern. -Blood cultures x2 have no growth to date. -GI stool PCR positive for shiga toxin producing E coli. -Discontinued meropenem as antibiotics may propagate Endotoxin release and worsened infection. -Patient is at risk of HUS and continue to monitor CBC and renal function closely. HUS is usually delayed in onset and will happen 7-10 days after infection, therefore, will need to be monitored closely as outpatient. -Continue supportive care with IV fluid hydration and antiemetics. 3. Acute kidney injury, present on admission. Resolved. -Secondary to prerenal azotemia from dehydration with GI losses and decreased PO intake. -Unclear baseline creatinine. Initial creatinine 1.10. Creatinine trended down to 0.80 on resolved. -Avoid nephrotoxic agents. -Continued IV fluid hydration until adequately hydrated than discontinued. -Continue to monitor renal function daily as patient is at risk of HUS as above. 4. Acute dehydration with orthostatic hypotension, present on admission. Resolved. -Continued IV fluid hydration until adequately hydrated than discontinued as above. -Orthostatic blood pressure measurements now negative. 5. Exertional dyspnea, acuity unclear, present on admission. -Echocardiogram demonstrated normal sinus rhythm, normal LV size, wall thickness, wall motion and left ventricular systolic function with EF 60-65%, no rmal chamber sizes and no significant valvular abnormalities. -Troponin negative at < 0.012. -EKG demonstrated sinus rhythm without acute ischemic changes. -Respiratory viral PCR negative. 6. Acute hypokalemia, present on admission. Resolved. -Secondary to GI losses. -Initial potassium level 3.3. Received potassium chloride 40 mEq IV x1. -Continue to monitor potassium level replete as necessary. 7. Acquired hypothyroidism (h/o Levar's thyroiditis) chronic condition, present on admission, inadequately controlled -TSH elevated at 11.4 with normal free T4 at 1.6. -Continue levothyroxine 75 mcg daily. Given acute illness will hold on adjustment of levothyroxine dose. 8. Parkinson's, chronic condition, present on admission, active -Continue home carbidopa levodopa at 1 tablet daily Code status: Full code. Designates spouse as surrogate decision maker VTE prophylaxis with SCDs and heparin Disposition: Patient likely to discharge home possibly tomorrow as long as electrolytes are within normal limits, maintaining adequate hydration/tolerating diet, and diarrhea has dissipated. Quality VTE Deep Vein Thrombosis/Pulmonary Embolism Present on Admission: No
[2019-04-02] MEDS: CARBIDOPA-LEVODOPA 10/100 TABLET 1 EACH PO (20:09)
[2019-04-03 04:43] VITALS: BP 126/67; PULSE 65; RESP 18; TEMP 36.7; O2SAT 97
[2019-04-03 05:36] LABS: Hematocrit 32.3 % (36-46); Hemoglobin 11.1 g/dL (12.0-16.0); Mean Corpuscular HGB Conc 34.2 % (30-36); Mean Corpuscular Volume 87.7 fL (80-100); Platelet Count 240 X10^3/uL (150-400); Red Blood Cell Count 3.69 X10^6/uL (4.0-5.2); Red Cell Distribution Width 14.7 % (11.6-14.8); White Blood Cell Count 5.3 X10^3/uL (4.5-11.0)
[2019-04-03 05:47] LABS: Add Manual Diff / Slide Review YES; Alanine Aminotransferase 14 IU/L (9-52); Albumin 3.2 g/dL (3.5-5.0); Alkaline Phosphatase 68 U/L (38-126); Aspartate Aminotransferase 24 IU/L (14-36); BUN Creatinine Ratio 14.3 (6-22); Bilirubin Total 0.4 mg/dL (0.2-1.3); Blood Urea Nitrogen 10 mg/dL (7-17); Calcium 8.8 mg/dL (8.4-10.2); Carbon Dioxide 26 mmol/L (22-32); Chloride 108 mmol/L (98-107); Estimated Glomerular Filt Rate > 60.0 mL/min (>60); Globulin 3.1 g/dL (1.7-4.1); Glucose 90 mg/dL (80-110); HEMOLYSIS < 15 (0-50); Magnesium 2.1 mg/dL (1.6-2.3); Potassium 3.7 mmol/L (3.4-5.1); Sodium 139 mmol/L (137-145); Total Protein 6.3 g/dL (6.3-8.2)
[2019-04-03] MEDS: LEVOTHYROXINE 75 MCG TABLET PO (06:08)
[2019-04-03 06:24] LABS: Procalcitonin 3.07 ng/mL (<0.5)
[2019-04-03 07:03] LABS: Neutrophils Absolute Manual 1696 /uL (3000-5900); Total Cells Counted 100
[2019-04-03 07:05] LABS: Anisocytosis 1+
[2019-04-03 08:00] VITALS: BP 139/75; PULSE 64; RESP 18; TEMP 36.6; O2SAT 99
[2019-04-03] MEDS: ASPIRIN EC 81 MG TABLET PO (09:10)
[2019-04-03] MEDS: CHOLECALCIFEROL (VITAMIN D3) 400 UNIT TABLET 800 UNIT PO (09:10)
[2019-04-03] MEDS: SODIUM CHLORIDE 0.9% FLUSH 10 ML IV (09:11)
--- NOTE | 2019-04-03 09:42 | PM.DS.1 ---
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 No history of heart disease. Patient is known to have had a colonoscopy on 11/29/2018 with no significant polyps, mass lesions, or inflammatory features identified. Patient presented to the ED on 03/31/2019 out of concern for chills, nausea, vomiting, and diarrhea. Reports sudden onset of chills earlier in the day which was followed by abrupt episodes of vomiting (12+ times) in for episodes of non-bloody diarrhea. Today symptoms were accompanied by malaise and profound generalized weakness. Reports feeling dehydrated and being unable to tolerate oral hydration. No reported fever. Reports travel to [place] and [place] over the past 3 weeks, returned on 03/29. Reports being in an airplane for over 20 hours. Prior to patient's trip she was having trouble with intractable nausea and vomiting in the month of February. At least since 02/14/2019. During that month she was treated for a UTI, on 02/08/2019 w/ a 10 day course of ciprofloxacin 500 mg BID and on 02/26/2019 w/ a 7 day course of Bactrim. Patient does not have a history of recurrent UTIs. Urine culture on 02/26/2019 grew Klebsiella pneumonia with resistance to ampicillin. Reports additional symptoms of suprapubic tenderness / pressure (since Tuesday), bilateral lower back pain, and a rash. During the month of February patient has had episodes of dizziness with intractable nausea and vomiting. On 03/05 was seen in the ED and treated with IV fluids. Patient reports experiencing significant fatigue and shortness of breath with exertion for the past 2-3 weeks, believes this to be present prior to her trip. Denies URI symptoms, but on occasion had a cough. No prior known history of Clostridium difficile, however does report that her daughter (who 1 year ago) had Clostridium difficile 1 year ago. No prior known history of cardiac disease or blood clots. Prior to her trip patient has been having trouble with intractable nausea and vomiting. This has been going on since at least 02/14/2019. At that time she was seen by her PCP. Also, on 03/05/2019 patient was seen in the ED for similar concerns. She was treated with IV hydration and discharged home. Patient has underlying history of Parkinson's disease with tremor, impaired balance, and shuffling gait at baseline. She was started on carbidopa 10 mg - levodopa 100 mg, thrice daily, in September of 2018 by her PCP. Patient has decreased the dose to 1 tablet daily in the past several weeks as she thought that this medication may be causing her symptoms. Presentation to the ED patient was hypotensive and tachycardic. She complained of lower back pain and was treated with an IV dose of Toradol. Initial labs revealed hypokalemia (K 3.3), lactic acidosis (lactate 4.1), and abnormal thyroid function test (TSH 11.4). Chest x-ray was unremarkable abdominal x-ray, which is pending at this time, was reported to be non-obstructive. She was treated with IV fluids and given Rocephin out of concern for bacteremia. Blood Cx, collected. No vomiting or diarrhea since presentation to the ED. Discharge Providers Provider Date of admission: 04/01/19 11:06 Discharge Date: 04/03/19 Primary care physician: Jey Phillip MD Discharge provider: Reji Busch DO Summary Hospital Course Discharge Diagnosis: 1. Shiga toxin producing E. coli Enteritis, present on admission. Resolving. 2. Acute kidney injury, present on admission. Resolved. 3. Acute dehydration with orthostatic hypotension, present on admission. Resolved. 4. Exertional dyspnea, acuity unclear, present on admission. Possibly related to actue illlness, Hg to 11.1 after fluid hydration. Follow up CBC outpatient as noted above. 5. Acute hypokalemia, present on admission. Resolved. 6. Acquired hypothyroidism (h/o Levar's thyroiditis) chronic condition, present on admission, inadequately controlled 7. Parkinson's, chronic condition, present on admission, active Hospital Course: Juan Ye is a 73-year-old female with a past medical history significant for Parkinson's disease (with tremor, impaired balance, shuffling gait at baseline), 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 1. Shiga toxin producing E. coli Enteritis, present on admission. Resolving. -patient was treated with supportive care and once result from stool PCR showed shiga toxin producing E coli her antibiotics were stopped. On the day of discharge patient was tolerating a diet and reported improvement in her diarrhea as well. I have ordered for a CBC and a BMP to be done as an outpatient to monitor for possible HUS, however this is unlikely. -Patient presented with nausea, vomiting, and diarrhea for several days since returning from [place]. -Abdominal film did not demonstrate any acute intra-abdominal process with normal bowel gas pattern. -Blood cultures x2 have no growth to date. -GI stool PCR positive for shiga toxin producing E coli. -Discontinued meropenem as antibiotics may propagate Endotoxin release and worsened infection. -Patient is at risk of HUS and continue to monitor CBC and renal function closely. HUS is usually delayed in onset and will happen 7-10 days after infection, therefore, will need to be monitored closely as outpatient. 2. Acute kidney injury, present on admission. Resolved. -Secondary to prerenal azotemia from dehydration with GI losses and decreased PO intake. -Unclear baseline creatinine. Initial creatinine 1.10. Creatinine trended down to 0.70 on discharge. -Will check BMP as outpatient as noted above. 3. Acute dehydration with orthostatic hypotension, present on admission. Resolved. -Continued IV fluid hydration until adequately hydrated then discontinued as above. -Orthostatic blood pressure measurements now negative. 4. Exertional dyspnea, acuity unclear, present on admission. Possibly related to actue illlness, Hg to 11.1 after fluid hydration. Follow up CBC outpatient as noted above. -Echocardiogram demonstrated normal sinus rhythm, normal LV size, wall thickness, wall motion and left ventricular systolic function with EF 60-65%, normal chamber sizes and no significant valvular abnormalities. -Troponin negative at < 0.012. -EKG demonstrated sinus rhythm without acute ischemic changes. -Respiratory viral PCR negative. 5. Acute hypokalemia, present on admission. Resolved. -Secondary to GI losses. -Initial potassium level 3.3. Received potassium chloride 40 mEq IV x1. K at discharge was 3.7, tolerating an adequate diet. 6. Acquired hypothyroidism (h/o Levar's thyroiditis) chronic condition, present on admission, inadequately controlled -TSH elevated at 11.4 with normal free T4 at 1.6. -Continue levothyroxine 75 mcg daily. Given acute illness will hold on adjustment of levothyroxine dose. 7. Parkinson's, chronic condition, present on admission, active -Continue home carbidopa levodopa at 1 tablet daily Status at Discharge Cognitive/behavioral status at discharge: oriented Overall status at discharge: patient is back to baseline Time Spent with Patient Time spent: Greater than 30 minutes Exam Vital Signs (past 8 hours): - 04/03/19 04:43 04/03/19 08:00 Temperature 98.0 F 97.8 F Pulse Rate 65 64 Respiratory Rate 18 18 Blood Pressure 126/67 139/75 Pulse Oximetry 97 99 Oxygen Delivery Method Room Air Oxygen Flow Rate 0 Narrative Exam Narrative: GENERAL APPEARANCE: Well developed, well nourished, in no acute distress. SKIN: Inspection of the skin reveals no rashes, ulcerations or petechiae. HEENT: The sclerae were anicteric and conjunctivae were pink and moist. Extraocular movements were intact and pupils were equal, round with normal accommodation. External inspection of the ears and nose showed no scars, lesions, or masses. Lips, teeth, and gums showed normal mucosa. The oral mucosa, hard and soft palate, tongue and posterior pharynx were unremarkable. NECK: Supple and symmetric. There was no thyroid enlargement, and no tenderness, or masses were felt. CHEST: Normal AP diameter and normal contour without any kyphoscoliosis. LUNGS: Auscultation of the lungs revealed no wheezes, rhonchi, or rales. CARDIOVASCULAR: There was a regular rate and rhythm without any murmurs, gallops, rubs. Peripheral pulses were 2+ and symmetric. ABDOMEN: Soft and nontender with normal bowel sounds. No ascites was noted. MUSCULOSKELETAL: There was no tenderness or effusions noted. Muscle strength and tone were normal. EXTREMITIES: No cyanosis, clubbing or edema. NEUROLOGIC: Alert and oriented x 3. Normal affect. Gait was normal. Strength is +5/5 in the Upper Extremities and Lower Extremities Bilaterally. Sensation to touch was normal. Objective Labs Result Diagrams: 04/03/19 05:15 04/03/19 05:15 Labs: Laboratory Results - last 24 hr 04/03/19 04/03/19 04/03/19 05:15 05:15 05:15 WBC 5.3 RBC 3.69 L Hgb 11.1 L Hct 32.3 L MCV 87.7 MCH 30.0 MCHC 34.2 RDW 14.7 Plt Count 240 Neut % (Auto) Not Reportable Lymph % (Auto) Not Reportable [place] % (Auto) Not Reportable Eos % (Auto) Not Reportable Baso % (Auto) Not Reportable Lymph # (Auto) Not Reportable [place] # (Auto) Not Reportable Baso # (Auto) Not Reportable Total Counted 100 Seg Neutrophils % 29.0 L D Band Neutrophils % 3.0 Lymphocytes % (Manual) 34.0 D Atypical Lymphs % 4.0 H Monocytes % (Manual) 5.0 Eosinophils % (Manual) 25.0 H Neutrophils # (Manual) 1696 L RBC Morphology See below Anisocytosis 1+ H Sodium 139 Potassium 3.7 Chloride 108 H Carbon Dioxide 26 BUN 10 Creatinine 0.70 Estimated GFR > 60.0 BUN/Creatinine Ratio 14.3 Glucose 90 Calcium 8.8 Magnesium 2.1 Total Bilirubin 0.4 AST 24 ALT 14 Alkaline Phosphatase 68 Total Protein 6.3 Albumin 3.2 L Globulin 3.1 Albumin/Globulin Ratio 1.0 Procalcitonin 3.07 H Discharge Plan Discharge Plan Patient Disposition: Home Discharge comment: You were admitted to the hospital for dehydration secondary to E. Coli with Shiga Toxin. Your symptoms are improving your labs are now back to normal. I have ordered outpatient labs to be done on Tuesday, in you should follow these up with her primary care doctor. Discharge Med Rec/Prescriptions Prescriptions: Continued ascorbic acid (vitamin C) 500 MG tablet 500 mg PO DAILY Qty: 0 RF: 0 ferrous gluconate 240 MG tablet 240 mg PO QDAY Qty: 0 RF: 0 Restasis 1 EACH dropperette 1 drp OPHTH DIRECTED Qty: 0 RF: 0 Lumigan 0.01 % drops 1 drp ophthalmic (eye) DIRECTED Qty: 0 RF: 0 cyanocobalamin (vitamin B-12) 1,000 MCG/1 ML solution 1,000 mcg IM X1 Qty: 0 RF: 0 diphenhydramine HCl [Simply Sleep] 25 mg Tablet 12.5 mg PO BEDTIME Qty: 0 RF: 0 metronidazole [MetroLotion] 0.75 % lotion 0.75 % Topical QDAY Qty: 59 RF: 11 levothyroxine [Synthroid] 75 mcg tablet 75 mcg PO DAILY RF: 0 meclizine 25 mg Tablet 25 mg PO PRN PRN (Reason: vomiting or dizziness) RF: 0 aspirin 81 mg Tablet,Delayed Release (Dr/Ec) 81 mg PO DAILY RF: 0 cholecalciferol (vitamin D3) [Vitamin D3] 400 unit Tablet 800 unit PO DAILY RF: 0 calcium carbonate 1 tab PO TID RF: 0 ondansetron 4 mg tablet,disintegrating 4 mg PO Q8H PRN (Reason: nausea and vomiting) Qty: 10 RF: 0 carbidopa-levodopa [Sinemet] 10-100 mg tablet 1 tab PO DAILY RF: 0 Other Ambulatory Orders: Basic Metabolic Panel (Routine) Timeframe: 6 Days Facility: [facility] - Location: Laboratory Ordered By: Reji Busch Complete Blood Count AUTO DIFF (Routine) Timeframe: 6 Days Facility: [facility] - Location: Laboratory Ordered By: Reji Busch Follow up/Referrals: Jey Phillip MD [Primary Care Provider] - Provider Discharge Instructions Diet: Diet as Tolerated Activity: As tolerated Visit Report/Discharge Packet Instructions: DI for Escherichia Coli Infection, DI for Dehydration -- Adult Discharge Data Primary Care Provider: Jey Phillip Quality VTE Deep Vein Thrombosis/Pulmonary Embolism Present on Admission: No
--- NOTE | 2019-04-03 10:59 | PC.NURSE ---
Day Shift- Pt states feeling better this AM, denies pain, nausea, mild abd cramping, states last BM was loose/soft. Enc po fluids. States is ready to go home. Has all belongings. Pt's coming to pick her up around 1100. At 1020, pt had taken her tlemetry monitor off per instruction by [employer]. However, pt also had removed her PIV from her left wrist. No bleeding noted at site, purple bruise is noted. Discharge summary packet reviewed with pt. Aware to come to [facility] on Tuesday for lab draw and this RN made a follow up appointment for pt with Dr. Phillip for TuesdayApril 10. Pt's asked when pt can receive her 2nd Shingles injection that is due by the end of year. Explained to review with Dr. Phillip at follow up appointment. No further voiced concerns. pt left unit via wheelchair with all belongings at 1058 in no distress with [employer] escort. Pt's present to drive pt home. No prescriptions needed.
== END 2019-04-03 10:58 | disposition home or self-care (01) | DRG 372 ==
LOC: ED 04-01 01:48 → AC 04-01 01:52
PROVIDERS: Internal Medicine; Admitting Provider Nurse Practitioner Gerontology; Emergency Provider Emergency Medicine; PCP Student in an Organized Health Care Education/Training Program; Visit Provider Nurse Practitioner Gerontology
DX: A04.4 Other intestinal Escherichia coli infections (principal); N17.9 Acute kidney failure, unspecified; E87.2 Acidosis; I95.1 Orthostatic hypotension; R06.00 Dyspnea, unspecified; E87.6 Hypokalemia; E86.0 Dehydration; G20 Parkinson's disease; E06.3 Autoimmune thyroiditis
CPT/HCPCS: 36415; 71045; 74019; 80053; 81001; 81003; 82550; 83605; 83735; 84145; 84439; 84443; 84484; 85025; 86140; 87040; 87045; 87086; 87177; 87205; 87507; 87633; 93005; 93010; 96361; 96365; 96375; 99284; G0378; C8929; J1644; J1885; J2185; J2405; J3420; J3480

== ENCOUNTER → 2019-04-09 11:28 | Outpatient (CLI) | payer MEDICARE, BC, SELFPAY ==
[2019-04-01 02:26] VITALS: BMI 21.9
[2019-04-09 12:36] LABS: Add Manual Diff / Slide Review NO; Basophils Absolute Auto 100 /uL (0-100); Basophils Percent Auto 0.8 % (0-2); Eosinophils Absolute Auto 100 /uL (0-450); Eosinophils Percent Auto 1.1 % (2-4); Hematocrit 38.8 % (36-46); Hemoglobin 13.1 g/dL (12.0-16.0); Lymphocytes Absolute Auto 1800 /uL (1100-4500); Lymphocytes Percent Auto 14.1 % (25-40); Mean Corpuscular HGB Conc 33.7 % (30-36); Mean Corpuscular Hemoglobin 29.6 PG (26-34); Mean Corpuscular Volume 87.8 fL (80-100); Monocytes Absolute Auto 1000 /uL (0-900); Neutrophils Absolute Auto 9400 /uL (1500-7000); Platelet Count 429 X10^3/uL (150-400); Red Blood Cell Count 4.42 X10^6/uL (4.0-5.2); Red Cell Distribution Width 13.9 % (11.6-14.8); White Blood Cell Count 12.4 X10^3/uL (4.5-11.0)
[2019-04-09 12:46] LABS: BUN Creatinine Ratio 15.7 (6-22); Blood Urea Nitrogen 11 mg/dL (7-17); Calcium 9.1 mg/dL (8.4-10.2); Carbon Dioxide 27 mmol/L (22-32); Chloride 97 mmol/L (98-107); Estimated Glomerular Filt Rate > 60.0 mL/min (>60); Glucose 88 mg/dL (80-110); Sodium 135 mmol/L (137-145)
[2019-04-09 12:48] LABS: HEMOLYSIS 88 (0-50)
[2019-04-09 12:49] LABS: Potassium 4.2 mmol/L (3.4-5.1)
== END ==
PROVIDERS: PCP Student in an Organized Health Care Education/Training Program; Visit Provider Internal Medicine
DX: A09 Infectious gastroenteritis and colitis, unspecified (principal); A04.4 Other intestinal Escherichia coli infections
CPT/HCPCS: 36415; 80048; 85025

== ENCOUNTER → 2019-04-10 11:17 | Outpatient (CLI) | payer MEDICARE, BC, SELFPAY ==
[2019-04-01 02:26] VITALS: BMI 21.9
[2019-04-10 11:26] LABS: RBC Urine None Seen (0-5/HPF); WBC Urine None Seen (0-5/HPF)
[2019-04-10 13:00] LABS: Appearance Urine UA CLEAR; Bilirubin Urine UA NEGATIVE (NEGATIVE); Color Urine UA YELLOW; Glucose Urine UA NEGATIVE (Negative); Ketones Urine UA NEGATIVE (NEGATIVE); Leukocyte Esterase Urine UA NEGATIVE (NEGATIVE); Nitrite Urine UA NEGATIVE (Negative); Occult Blood Urine UA NEGATIVE (Negative); Protein Urine UA NEGATIVE (Negative); Specific Gravity Urine UA <=1.005 (1.000-1.035); Urobilinogen Urine UA 0.2 E.U./dL (0.2)
[2019-04-10 13:29] LABS: pH Urine UA 6.5 (4.5-8.0)
[2019-04-10 14:08] LABS: Bacteria Urine Occasional (0-1); Culture Indicated Urine Cult Not Indicated; Squamous Epithelial Cell Urine 0-1 /HPF (0-5/HPF)
== END ==
PROVIDERS: PCP Student in an Organized Health Care Education/Training Program; Visit Provider Student in an Organized Health Care Education/Training Program
DX: R30.0 Dysuria (principal)
CPT/HCPCS: 81001

== ENCOUNTER → 2022-07-21 12:46 | Outpatient (CLI) | payer MEDICARE, SELFPAY ==
[2020-02-08 11:45] VITALS: BMI 21.9
== END ==
PROVIDERS: PCP Student in an Organized Health Care Education/Training Program; Referring Provider Student in an Organized Health Care Education/Training Program; Visit Provider Student in an Organized Health Care Education/Training Program
DX: Z78.0 Asymptomatic menopausal state (principal); M81.0 Age-related osteoporosis without current pathological fracture; Z92.23 Personal history of estrogen therapy
CPT/HCPCS: 77080

== ENCOUNTER → 2022-07-22 10:58 | Outpatient (CLI) | payer MEDICARE, SELFPAY ==
[2020-02-08 11:45] VITALS: BMI 21.9
[2022-07-22 11:31] LABS: Add Manual Diff / Slide Review NO; Basophils Absolute Auto 0 /uL (0-100); Basophils Percent Auto 1.2 % (0-2); Eosinophils Absolute Auto 200 /uL (0-450); Hematocrit 36.4 % (36-46); Hemoglobin 12.3 g/dL (12.0-16.0); Lymphocytes Absolute Auto 1300 /uL (1100-4500); Lymphocytes Percent Auto 30.1 % (25-40); Mean Corpuscular HGB Conc 33.9 % (30-36); Mean Corpuscular Hemoglobin 28.6 PG (26-34); Mean Corpuscular Volume 84.5 fL (80-100); Monocytes Absolute Auto 600 /uL (0-900); Monocytes Percent Auto 14.8 % (3-14); Neutrophils Absolute Auto 2100 /uL (1500-7000); Neutrophils Percent Auto 48.9 % (50-75); Platelet Count 317 X10^3/uL (150-400); Red Cell Distribution Width 13.3 % (11.6-14.8); White Blood Cell Count 4.2 X10^3/uL (4.5-11.0)
[2022-07-22 11:48] LABS: Hemoglobin A1C% w Est Avg Glu 5.8 % (4.0-6.0)
[2022-07-22 12:04] LABS: BUN Creatinine Ratio 11.5 (6-22); Blood Urea Nitrogen 9 mg/dL (7-17); Calcium 8.9 mg/dL (8.4-10.2); Carbon Dioxide 28 mmol/L (22-32); Chloride 97 mmol/L (98-107); Cholesterol 245 mg/dL (140-199); Estimated Glomerular Filt Rate > 60 mL/min (>60); Glucose 93 mg/dL (80-110); HDL Cholesterol 54 mg/dL (40-60); HEMOLYSIS < 15 (0-50); LDL Cholesterol Calculated 157 mg/dL (<100); Potassium 4.4 mmol/L (3.4-5.1); Sodium 132 mmol/L (137-145); Triglycerides 170 mg/dL (35-150)
[2022-07-22 13:07] LABS: TSH w/ Reflex to FT4 1.86 uIU/mL (0.47-4.68)
[2022-07-22 16:25] LABS: Hep C Virus Ab w/Reflex Quant NEGATIVE s/c (NEGATIVE)
== END ==
PROVIDERS: PCP Student in an Organized Health Care Education/Training Program; Referring Provider Student in an Organized Health Care Education/Training Program; Visit Provider Student in an Organized Health Care Education/Training Program
DX: E03.8 Other specified hypothyroidism (principal); R73.03 Prediabetes; E06.3 Autoimmune thyroiditis; E53.8 Deficiency of other specified B group vitamins; Z11.59 Encounter for screening for other viral diseases; E78.5 Hyperlipidemia, unspecified
CPT/HCPCS: 36415; 80048; 80061; 83036; 84443; 85025; 86803

== ENCOUNTER → 2023-03-31 10:59 | Outpatient (CLI) | payer MEDICARE, SELFPAY ==
[2020-02-08 11:45] VITALS: BMI 21.9
[2023-03-31 12:47] LABS: Vitamin D 25 Hydroxy (D3) 52.3 ng/mL (30.0-100.0)
[2023-03-31 13:36] LABS: Vitamin B12 859 pg/mL (239-931)
== END ==
PROVIDERS: PCP Family Medicine; Referring Provider Family Medicine; Visit Provider Family Medicine
DX: M81.0 Age-related osteoporosis without current pathological fracture (principal); E53.8 Deficiency of other specified B group vitamins; D51.0 Vitamin B12 deficiency anemia due to intrinsic factor deficiency
CPT/HCPCS: 36415; 82306; 82607

== ENCOUNTER → 2023-07-18 12:26 | Outpatient (CLI) | payer MEDICARE, SELFPAY ==
[2020-02-08 11:45] VITALS: BMI 21.9
[2023-07-18 13:49] LABS: Add Manual Diff / Slide Review NO; Basophils Absolute Auto 0 /uL (0-100); Basophils Percent Auto 0.9 % (0-2); Eosinophils Absolute Auto 100 /uL (0-450); Eosinophils Percent Auto 2.6 % (2-4); Hematocrit 38.2 % (36-46); Hemoglobin 13.1 g/dL (12.0-16.0); Lymphocytes Absolute Auto 1300 /uL (1100-4500); Lymphocytes Percent Auto 29.5 % (25-40); Mean Corpuscular HGB Conc 34.2 % (30-36); Mean Corpuscular Hemoglobin 28.8 PG (26-34); Monocytes Absolute Auto 500 /uL (0-900); Monocytes Percent Auto 11.6 % (3-14); Neutrophils Absolute Auto 2500 /uL (1500-7000); Neutrophils Percent Auto 55.4 % (50-75); Platelet Count 320 X10^3/uL (150-400); Red Blood Cell Count 4.55 X10^6/uL (4.0-5.2); Red Cell Distribution Width 14.3 % (11.6-14.8); White Blood Cell Count 4.5 X10^3/uL (4.5-11.0)
[2023-07-18 14:29] LABS: Alanine Aminotransferase 15 IU/L (<35); Albumin 4.4 g/dL (3.5-5.0); Albumin Globulin Ratio 1.1 (1.0-2.8); Alkaline Phosphatase 88 U/L (38-126); Aspartate Aminotransferase 26 IU/L (14-36); Bilirubin Total 0.6 mg/dL (0.2-1.3); Blood Urea Nitrogen 16 mg/dL (7-17); Calcium 9.3 mg/dL (8.4-10.2); Carbon Dioxide 24 mmol/L (22-32); Chloride 98 mmol/L (98-107); Cholesterol 293 mg/dL (140-199); Estimated Glomerular Filt Rate > 60 mL/min (>60); Globulin 3.9 g/dL (1.7-4.1); Glucose 100 mg/dL (80-110); HDL Cholesterol 57 mg/dL (40-60); HEMOLYSIS < 15 (0-50); LDL Cholesterol Calculated 203 mg/dL (<100); Potassium 4.6 mmol/L (3.4-5.1); Sodium 133 mmol/L (137-145); Total Protein 8.3 g/dL (6.3-8.2); Triglycerides 165 mg/dL (35-150)
[2023-07-18 15:00] LABS: Thyroid Stimulating Hormone 0.868 uIU/mL (0.47-4.68)
[2023-07-19 07:27] LABS: x Labcorp Estim. Avg Glu (eAG) 126 mg/dL (.)
== END ==
LOC: LAB 12:28
PROVIDERS: PCP Family Medicine; Referring Provider Family Medicine; Visit Provider Family Medicine
DX: E78.00 Pure hypercholesterolemia, unspecified (principal); E03.8 Other specified hypothyroidism; R73.03 Prediabetes
CPT/HCPCS: 36415; 80053; 80061; 83036; 84443; 85025

== ENCOUNTER → 2024-10-12 10:29 | Outpatient (CLI) | payer MEDICARE, SELFPAY ==
[2020-02-08 11:45] VITALS: BMI 21.9
[2024-10-12 11:31] LABS: Hematocrit 39.6 % (36-46); Hemoglobin 13.4 g/dL (12.0-16.0); Mean Corpuscular HGB Conc 33.8 % (30-36); Mean Corpuscular Hemoglobin 29.6 PG (26-34); Mean Corpuscular Volume 87.7 fL (80-100); Platelet Count 341 X10^3/uL (150-400); Red Blood Cell Count 4.51 X10^6/uL (4.0-5.2); Red Cell Distribution Width 13.5 % (11.6-14.8); White Blood Cell Count 4.1 X10^3/uL (4.5-11.0)
[2024-10-12 11:56] LABS: Hemoglobin A1C% w Est Avg Glu 5.5 % (4.0-6.0)
[2024-10-12 12:09] LABS: Alanine Aminotransferase 18 IU/L (<35); Albumin 4.5 g/dL (3.5-5.0); Albumin Globulin Ratio 1.4 (1.0-2.8); Alkaline Phosphatase 95 U/L (38-126); Aspartate Aminotransferase 31 IU/L (14-36); Bilirubin Total 0.6 mg/dL (0.2-1.3); Blood Urea Nitrogen 11 mg/dL (7-17); Calcium 9.6 mg/dL (8.4-10.2); Carbon Dioxide 26 mmol/L (22-32); Chloride 99 mmol/L (98-107); Cholesterol 295 mg/dL (140-199); Estimated Glomerular Filt Rate > 60 mL/min (>60); Globulin 3.3 g/dL (1.7-4.1); Glucose 100 mg/dL (70-99); HDL Cholesterol 62 mg/dL (40-60); HEMOLYSIS < 15 (0-50); LDL Cholesterol Calculated 200 mg/dL (<100); Sodium 131 mmol/L (137-145); Total Protein 7.8 g/dL (6.3-8.2); Triglycerides 167 mg/dL (35-150)
[2024-10-12 12:20] LABS: Potassium 5.5 mmol/L (3.4-5.1)
[2024-10-12 12:26] LABS: Free T4, Direct Thyroxine 1.43 ng/dL (0.78-2.19)
[2024-10-12 12:40] LABS: TSH w/ Reflex to FT4 1.49 uIU/mL (0.47-4.68)
[2024-10-12 12:50] LABS: Creatinine Urine Random 61.52 mg/dL
[2024-10-12 12:57] LABS: Microalbumin Urine Random < 0.6 mg/dL (0-1.6)
[2024-10-12 12:58] LABS: Vitamin B12 Reflex MMA if <400 873 pg/mL (239-931)
== END ==
PROVIDERS: PCP Family Medicine; Referring Provider Family Medicine; Visit Provider Family Medicine
DX: E78.5 Hyperlipidemia, unspecified (principal); R73.03 Prediabetes; E03.8 Other specified hypothyroidism; E06.3 Autoimmune thyroiditis; E53.8 Deficiency of other specified B group vitamins
CPT/HCPCS: 36415; 80053; 80061; 82043; 82570; 82607; 83036; 84439; 84443; 85027

== ENCOUNTER → 2024-10-31 11:34 | Outpatient (CLI) | payer MEDICARE, SELFPAY ==
[2020-02-08 11:45] VITALS: BMI 21.9
[2024-10-31 12:31] LABS: Blood Urea Nitrogen 18 mg/dL (7-17); Calcium 9.1 mg/dL (8.4-10.2); Carbon Dioxide 24 mmol/L (22-32); Chloride 103 mmol/L (98-107); Estimated Glomerular Filt Rate 57 mL/min (>60); Glucose 95 mg/dL (70-99); HEMOLYSIS < 15 (0-50); Potassium 4.4 mmol/L (3.4-5.1); Sodium 134 mmol/L (137-145)
== END ==
PROVIDERS: PCP Family Medicine; Referring Provider Family Medicine; Visit Provider Family Medicine
DX: E87.5 Hyperkalemia (principal)
CPT/HCPCS: 36415; 80048